=== PATIENT | female | born 1945 | race African-American/Black ===

== ENCOUNTER → 2017-02-01 | Outpatient (CLI) | payer OTHER ==
--- NOTE | 2017-02-01 13:45 | KCIC ---
DATE: 02/01/2017 EXAM: MAMMO KASI SCREENING BILATERAL HISTORY: Routine screening COMPARISON: 10/10/2015 This study was interpreted with the benefit of Computerized Aided Detection (CAD). The breast parenchyma is heterogeneously dense, which could reduce sensitivity of mammography. Breast parenchyma level C. FINDINGS: 2-D and 3-D tomosynthesis imaging was performed in CC and MLO projections. No new or enlarging breast densities are seen. Minimal benign type calcification is present. No suspicious microcalcifications have developed. IMPRESSION: Stable mammograms without evidence of malignancy. BI-RADS CATEGORY: 2 BENIGN FINDING(S) RECOMMENDED FOLLOW-UP: 12M 12 MONTH FOLLOW-UP PQRS compliance statement: Patient information was entered into a reminder system with a target due date for the next mammogram. Mammography is a sensitive method for finding small breast cancers, but it does not detect them all and is not a substitute for careful clinical examination. A negative mammogram does not negate a clinically suspicious finding and should not result in delay in biopsying a clinically suspicious abnormality. "Our facility is accredited by the [employer] Mammography [employer]."
== END | disposition home or self-care (01) ==
LOC: KCIC MAMMO 09:56
PROVIDERS: ATTEND Family Medicine
DX: Z12.31 Encounter for screening mammogram for malignant neoplasm of breast (principal)
CPT/HCPCS: 77063; G0202; 77067

== ENCOUNTER → 2017-06-10 | Outpatient (CLI) | payer OTHER | END | disposition home or self-care (01) | LOC: KCIC DEXA 09:40 | DX: M85.88 Other specified disorders of bone density and structure, other site (principal); Z78.0 Asymptomatic menopausal state | CPT/HCPCS: 77080 ==

== ENCOUNTER → 2017-07-12 | Outpatient (CLI) | payer OTHER ==
[2017-07-12 10:03] LABS: ADD MAN DIFF? NO
[2017-07-12 10:08] LABS: BASO % 1 % (0-3); EOS # 0.1 x10^3/uL (0.0-0.7); EOS % 2 % (0-3); HEMATOCRIT 37.4 % (36.0-47.0); HEMOGLOBIN 12.5 g/dL (12.0-15.5); LYMPH # 1.6 x10^3/uL (1.0-4.8); LYMPH % 24 % (24-48); MEAN CORPUSCULAR HEMOGLOBIN 28 pg (25-35); MEAN CORPUSCULAR HGB CONC 33 g/dL (31-37); MEAN CORPUSCULAR VOLUME 84 fL (79-100); MONO # 0.9 x10^3/uL (0.0-1.1); MONO % 13 % (0-9); NEUT % 60 % (31-73); PLATELET COUNT 181 x10^3/uL (140-400); RED BLOOD COUNT 4.44 x10^6/uL (3.50-5.40); RED CELL DISTRIBUTION WIDTH 15.1 % (11.5-14.5); WHITE BLOOD COUNT 6.6 x10^3/uL (4.0-11.0)
[2017-07-12 10:30] LABS: ALBUMIN 3.5 g/dL (3.4-5.0); ALK PHOS 65 U/L (46-116); ALT (SGPT) 20 U/L (14-59); ANION GAP 7 (6-14); AST (SGOT) 16 U/L (15-37); BLOOD UREA NITROGEN 19 mg/dL (7-20); BUN/CREATININE RATIO 19 (6-20); CALCIUM 8.5 mg/dL (8.5-10.1); CARBON DIOXIDE 28 mmol/L (21-32); CHLORIDE 106 mmol/L (98-107); CHOLESTEROL 164 mg/dL (0-200); GFR 66.1; GLUCOSE 78 mg/dL (70-99); HDLC 69 mg/dL (40-60); LDLC 84 mg/dL (0-100); NON-HDL CHOLESTEROL 95 mg/dL (0-129); POTASSIUM 4.2 mmol/L (3.5-5.1); SODIUM 141 mmol/L (136-145); TOTAL BILIRUBIN 0.4 mg/dL (0.2-1.0); TRIGLYCERIDES 54 mg/dL (0-150); VLDLC 11 mg/dL (0-40)
[2017-07-12 10:31] LABS: CHOLESTEROL/HDL RATIO 2.4
[2017-07-12 10:37] LABS: THYROID STIM HORMONE (TSH) 1.202 uIU/mL (0.358-3.74)
[2017-07-12 10:37] LABS: FREE T4 0.89 ng/dL (0.76-1.46)
[2017-07-12 10:49] LABS: IRON,SERUM 70 ug/dL (50-170)
== END | disposition home or self-care (01) ==
LOC: LAB 09:47
DX: Z13.220 Encounter for screening for lipoid disorders (principal); G25.81 Restless legs syndrome; F51.04 Psychophysiologic insomnia; R79.89 Other specified abnormal findings of blood chemistry; Z79.899 Other long term (current) drug therapy
CPT/HCPCS: 36415; 80053; 80061; 83540; 84439; 84443; 85025

== ENCOUNTER → 2018-04-03 | Outpatient (CLI) | payer OTHER ==
[2017-04-19 15:00] VITALS: BP 133/75
[~2018-04-03] MED LIST: GLUC100018 PO; HYDR-3164 PO; ROPI1TAB PO; TEMA30CA PO
--- NOTE | 2018-04-03 17:16 | KCIC ---
Bilateral digital screening mammograms with 3-D tomosynthesis: Reason for examination: Routine screening. Comparison is made to previous studies dated 02/01/2017 and 10/10/2015. Bilateral mammograms in CC and oblique projections were obtained with 2-D imaging and 3-D tomosynthesis imaging on a Siemens Inspiration unit and reviewed on the workstation. Interpretation was made with the benefit of CAD. The skin and nipples show no abnormalities. No abnormal axillary lymph nodes are seen. The breast parenchyma shows scattered fatty and fibroglandular density. (Breast density: Category B.) There continues to be some subtle nodularity centrally in the left breast on CC view which is unchanged. There are no new dominant masses, suspicious calcifications or architectural distortion. Impression: No evidence of malignancy. Recommend routine screening. BI-RAD Category 2: Benign. "Our facility is accredited by the [employer] Mammography Program." This patient's information has been entered into a reminder system for the patient to be notified with the results of her examination and a target date for the next mammogram. Electronically signed by: Mary Baird MD (04/03/2018 5:12 PM) [facility]
== END | disposition home or self-care (01) ==
LOC: KCIC MAMMO 15:35
PROVIDERS: ATTEND Family Medicine
DX: Z12.31 Encounter for screening mammogram for malignant neoplasm of breast (principal)
CPT/HCPCS: 77063; 77067

== ENCOUNTER → 2018-08-11 | Outpatient (CLI) | payer OTHER ==
[2017-04-19 15:00] VITALS: BP 133/75
--- NOTE | 2018-08-11 13:09 | KCIC ---
EXAM: HIP LEFT 2 VIEW. HISTORY: Left hip pain.. COMPARISON: None. FINDINGS: No fractures are identified. The joint spaces and alignment of the left hip are maintained. A calcification in the left hemipelvis measures 6.1 cm and most likely reflects a degenerated uterine fibroid. There is moderate to severe degenerative disc disease from L4 through S1. IMPRESSION: 1. No fracture or significant degenerative change at the left hip. Electronically signed by: Halley Garcia MD (08/11/2018 1:06 PM) [facility]
== END | disposition home or self-care (01) ==
LOC: KCIC 08:23
PROVIDERS: ATTEND Family Medicine
DX: M25.552 Pain in left hip (principal); M51.37 Other intervertebral disc degeneration, lumbosacral region
CPT/HCPCS: 73502

== ENCOUNTER 2019-03-15 21:04 | Inpatient (IN) | payer MEDICARE, OTHER ==
[~2019-03-15] VITALS: Ht 170.2 cm; Wt 66.7 kg
[2019-03-15] MEDS ORDERED: IV NORMAL SALINE 1000ML BAG 1,000 ML IV SCH (21:30)
--- NOTE | 2019-03-15 21:38 | PHYS DOC ---
Adult General Chief Complaint Chief Complaint: SHORTNESS OF BREATH HPI HPI 74-year-old female underlying history of hypertension, GERD patient's to the emergency department with complaints of shortness of breath. Patient states she had finished water aerobics she had a dizzy spell as well as shortness of breath subsided with rest however she got obtained which her car with increasing shortness of breath and a burning sensation in her chest. She denies any nausea, vomiting, syncopal episodes. He does have a history of recent travel with the cruise however that was in January. She denies any lower extremity edema or pain. She denies any chest pain. Rest makes her symptoms better, exertion made her symptoms worse. Review of Systems Review of Systems Constitutional: Denies fever or chills [] Respiratory: + SOB Cardiovascular: No additional information not addressed in HPI [] GI: Denies abdominal pain, nausea, vomiting, bloody stools or diarrhea [] : Denies dysuria or hematuria [] Musculoskeletal: Denies back pain or joint pain [] Integument: Denies rash or skin lesions [] Neurologic: Denies headache, focal weakness or sensory changes [] All other systems were reviewed and found to be within normal limits, except as documented in this note. Current Medications Current Medications Current Medications Medications (Trade) Dose Ordered Sig/Tosin Start Time Stop Time Status Last Admin Dose Admin Furosemide (Lasix) 40 mg 1X ONCE 03/15/19 22:15 03/15/19 22:16 DC 03/15/19 22:47 40 MG Info (CONTRAST GIVEN -- Rx MONITORING) 1 each PRN DAILY PRN 03/15/19 22:30 03/17/19 22:29 Iohexol (Omnipaque 350 Mg/ml) 90 ml 1X ONCE 03/15/19 22:15 03/15/19 22:16 DC 03/15/19 22:18 90 ML Sodium Chloride 1,000 ml @ 1,000 mls/hr Q1H 03/15/19 21:30 03/15/19 22:29 DC 03/15/19 21:49 1,000 MLS/HR Allergies Allergies Allergies Coded Allergies Type Severity Reaction Last Updated Verified No Known Drug Allergies 04/19/17 No Physical Exam Physical Exam Constitutional: Well developed, well nourished, no acute distress, non-toxic appearance. [] HENT: Normocephalic, atraumatic, bilateral external ears normal, oropharynx moist, no oral exudates, nose normal. [] Eyes: PERRLA, EOMI, conjunctiva normal, no discharge. [] Cardiovascular:Heart rate regular rhythm, no murmur [] Lungs & Thorax: Bilateral breath sounds clear to auscultation [] Abdomen: Bowel sounds normal, soft, no tenderness, no masses, no pulsatile masses. [] Skin: Warm, dry, no erythema, no rash. [] Back: No tenderness, no CVA tenderness. [] Extremities: No tenderness, no edema. [] Neurologic: Alert and oriented X 3, no focal deficits noted. [] Psychologic: Affect normal, judgement normal, mood normal. [] Current Patient Data Lab Values Laboratory Tests Test 03/15/19 21:15 White Blood Count 6.9 x10^3/uL (4.0-11.0) Red Blood Count 4.77 x10^6/uL (3.50-5.40) Hemoglobin 13.4 g/dL (12.0-15.5) Hematocrit 40.6 % (36.0-47.0) Mean Corpuscular Volume 85 fL (79-100) Mean Corpuscular Hemoglobin 28 pg (25-35) Mean Corpuscular Hemoglobin Concent 33 g/dL (31-37) Red Cell Distribution Width 15.1 % (11.5-14.5) H Platelet Count 166 x10^3/uL (140-400) Neutrophils (%) (Auto) 62 % (31-73) Lymphocytes (%) (Auto) 28 % (24-48) Monocytes (%) (Auto) 8 % (0-9) Eosinophils (%) (Auto) 1 % (0-3) Basophils (%) (Auto) 1 % (0-3) Neutrophils # (Auto) 4.3 x10^3/uL (1.8-7.7) Lymphocytes # (Auto) 1.9 x10^3/uL (1.0-4.8) Monocytes # (Auto) 0.5 x10^3/uL (0.0-1.1) Eosinophils # (Auto) 0.1 x10^3/uL (0.0-0.7) Basophils # (Auto) 0.1 x10^3/uL (0.0-0.2) D-Dimer (Merly) 1.18 ug/mlFEU (0.00-0.50) H Sodium Level 140 mmol/L (136-145) Potassium Level 3.8 mmol/L (3.5-5.1) Chloride Level 105 mmol/L (98-107) Carbon Dioxide Level 23 mmol/L (21-32) Anion Gap 12 (6-14) Blood Urea Nitrogen 25 mg/dL (7-20) H Creatinine 1.2 mg/dL (0.6-1.0) H Estimated GFR (Cockcroft-Gault) 53.3 BUN/Creatinine Ratio 21 (6-20) H Glucose Level 153 mg/dL (70-99) H Calcium Level 8.8 mg/dL (8.5-10.1) Total Bilirubin 0.4 mg/dL (0.2-1.0) Aspartate Amino Transferase (AST) 38 U/L (15-37) H Alanine Aminotransferase (ALT) 46 U/L (14-59) Alkaline Phosphatase 76 U/L (46-116) Troponin I Quantitative 0.021 ng/mL (0.000-0.055) XM-Vsr-Z-Type Natriuretic Peptide 3044 pg/mL (0-124) H Total Protein 7.1 g/dL (6.4-8.2) Albumin 4.1 g/dL (3.4-5.0) Albumin/Globulin Ratio 1.4 (1.0-1.7) Laboratory Tests 03/15/19 21:15 Laboratory Tests 03/15/19 21:15 EKG EKG EKG reviewed, interpretation time 26/03/09, no STEMI, left bundle branch block, tachycardia, left axis deviation[] Radiology/Procedures Radiology/Procedures [facility] [address] [place], [place] [id number] IMAGING REPORT Signed PATIENT: NIKKIE NGUYEN LACCOUNT: [id number] : 1945 LOCATION: ER AGE: 74 SEX: F EXAM STATUS: REG ER ORD. PHYSICIAN: RASHAWN COLLINS MD REASON: near syncope, + ddimer, SOB PROCEDURE: CT ANGIOGRAPHY CHEST Examination: CT angiogram chest HISTORY: History of syncope, elevated d-dimer, shortness of breath COMPARISON: None available TECHNIQUE: Axial CT angiography images of chest were performed with IV contrast. Coronal and sagittal 3-D MIP reformats are performed. Exposure: One or more of the following individualized dose reduction techniques were utilized for this examination: 1. Automated exposure control 2. Adjustment of the mA and/or kV according to patient size 3. Use of iterative reconstruction technique FINDINGS: The central airways are patent. Moderate cardiomegaly. The caliber of the aorta grossly appears unremarkable. There is no evidence of filling defect identified in the main pulmonary arterial trunk and right and left main pulmonary arteries and the visualized lobar, segmental branches of the pulmonary arteries. There is a 8 mm nodule identified in the right middle lobe of the lung. Patchy groundglass airspace opacities identified in the bilateral lungs likely small airway disease or atelectasis or edema. There is reflux of contrast into the hepatic veins. Mild prominent soft tissue identified about the bronchial branches in the bilateral lower lobes could be bronchitis. The liver, spleen grossly appears unremarkable. Moderate degenerative changes thoracic spine. IMPRESSION: 1. No evidence of pulmonary embolism. 2. Diffuse groundglass airspace opacities identified in the bilateral lungs likely infiltrates or congestive changes. Mild prominent soft tissue identified about the bronchial branches in the bilateral lower lobes could be bronchitis. 3. 8 mm nodule identified in the right middle lobe of the lung. Follow-up per Fleischner Society guidelines with a follow-up CT in 3-6 months. Electronically signed by: Pardeep Zarate MD (03/15/2019 10:37 PM) [facility] DICTATED and SIGNED BY: PARDEEP ZARATE MD DATE: 03/15/192236 [] Course & Med Decision Making Course & Med Decision Making Pertinent Labs and Imaging studies reviewed. (See chart for details) []74-year-old female underlying history of hypertension, GERD patient's to the emergency department with complaints of shortness of breath. Patient states she had finished water aerobics she had a dizzy spell as well as shortness of breath subsided with rest however she got obtained which her car with increasing shortness of breath and a burning sensation in her chest. She denies any nausea, vomiting, syncopal episodes. He does have a history of recent travel with the cruise however that was in January. She denies any lower extremity edema or pain. She denies any chest pain. Rest makes her symptoms better, exertion made her symptoms worse Labs and imaging reviewed with patient Elevated dddimer, CTA without evidence of pulmonary embolism however she does have bilateral groundglass concern for congestion, her BNP is 3044. Lasix 40 mg IV 1 Discussed findings with patient and family at bedside Plan admit with further cardiology consultation Dragon Disclaimer Dragon Disclaimer This electronic medical record was generated, in whole or in part, using a voice recognition dictation system. Departure Departure Impression: Primary Impression: Pulmonary edema Additional Impression: Hypertension Disposition: 09 ADMITTED INPATIENT Admitting Physician: FE Condition: IMPROVED Referrals: ROSHNI ROBERTSON MD (PCP) Problem Qualifiers Primary Impression: Pulmonary edema Chronicity: acute Qualified Codes: J81.0 - Acute pulmonary edema Additional Impression: Hypertension Hypertension type: essential hypertension Qualified Codes: I10 - Essential (primary) hypertension RASHAWN COLLINS MD Mar 15, 2019 21:38
[2019-03-15 21:39] LABS: BASO # 0.1 x10^3/uL (0.0-0.2); BASO % 1 % (0-3); EOS # 0.1 x10^3/uL (0.0-0.7); EOS % 1 % (0-3); HEMATOCRIT 40.6 % (36.0-47.0); HEMOGLOBIN 13.4 g/dL (12.0-15.5); LYMPH # 1.9 x10^3/uL (1.0-4.8); LYMPH % 28 % (24-48); MEAN CORPUSCULAR HEMOGLOBIN 28 pg (25-35); MEAN CORPUSCULAR HGB CONC 33 g/dL (31-37); MEAN CORPUSCULAR VOLUME 85 fL (79-100); MONO # 0.5 x10^3/uL (0.0-1.1); MONO % 8 % (0-9); NEUT # 4.3 x10^3/uL (1.8-7.7); NEUT % 62 % (31-73); PLATELET COUNT 166 x10^3/uL (140-400); RED BLOOD COUNT 4.77 x10^6/uL (3.50-5.40); RED CELL DISTRIBUTION WIDTH 15.1 % (11.5-14.5); WHITE BLOOD COUNT 6.9 x10^3/uL (4.0-11.0)
[2019-03-15 21:49] LABS: CALCIUM 8.8 mg/dL (8.5-10.1); CREATININE 1.2 mg/dL (0.6-1.0); GFR 53.3; POTASSIUM 3.8 mmol/L (3.5-5.1)
[2019-03-15 21:59] LABS: ALBUMIN 4.1 g/dL (3.4-5.0); ALBUMIN/GLOBULIN RATIO 1.4 (1.0-1.7); TOTAL BILIRUBIN 0.4 mg/dL (0.2-1.0); TOTAL PROTEIN 7.1 g/dL (6.4-8.2)
--- NOTE | 2019-03-15 22:02 | RAD ---
AP chest. HISTORY: Short of breath AP view was taken of the chest. Heart is upper normal in size. There is no effusion. There are hazy bilateral infiltrates mainly in the lung bases. There is no prior study for comparison. IMPRESSION: 1. Bibasilar infiltrates. Electronically signed by: Gomez Harden MD (03/15/2019 9:59 PM) [facility]
[2019-03-15] MEDS ORDERED: FUROSEMIDE 40 MG/4 ML VIAL. IVP ONE (22:15)
[2019-03-15] MEDS ORDERED: IOHEXOL 350 MG/ML 100 ML VIAL. IV ONE (22:15)
[2019-03-15] MEDS ORDERED: CONTRAST GIVEN. MC PRN (22:30)
--- NOTE | 2019-03-15 22:41 | RAD ---
Examination: CT angiogram chest HISTORY: History of syncope, elevated d-dimer, shortness of breath COMPARISON: None available TECHNIQUE: Axial CT angiography images of chest were performed with IV contrast. Coronal and sagittal 3-D MIP reformats are performed. Exposure: One or more of the following individualized dose reduction techniques were utilized for this examination: 1. Automated exposure control 2. Adjustment of the mA and/or kV according to patient size 3. Use of iterative reconstruction technique FINDINGS: The central airways are patent. Moderate cardiomegaly. The caliber of the aorta grossly appears unremarkable. There is no evidence of filling defect identified in the main pulmonary arterial trunk and right and left main pulmonary arteries and the visualized lobar, segmental branches of the pulmonary arteries. There is a 8 mm nodule identified in the right middle lobe of the lung. Patchy groundglass airspace opacities identified in the bilateral lungs likely small airway disease or atelectasis or edema. There is reflux of contrast into the hepatic veins. Mild prominent soft tissue identified about the bronchial branches in the bilateral lower lobes could be bronchitis. The liver, spleen grossly appears unremarkable. Moderate degenerative changes thoracic spine. IMPRESSION: 1. No evidence of pulmonary embolism. 2. Diffuse groundglass airspace opacities identified in the bilateral lungs likely infiltrates or congestive changes. Mild prominent soft tissue identified about the bronchial branches in the bilateral lower lobes could be bronchitis. 3. 8 mm nodule identified in the right middle lobe of the lung. Follow-up per Fleischner Society guidelines with a follow-up CT in 3-6 months. Electronically signed by: Pardeep Zarate MD (03/15/2019 10:37 PM) [facility]
[2019-03-15 23:40] VITALS: BP 133/90
[2019-03-16] VITALS (13 sets, daily range): BP systolic 72–111; BP diastolic 48–72
[2019-03-16] MEDS: ACETAMINOPHEN 325 MG TABLET. PO PRN ×4 (00:28→20:07)
--- NOTE | 2019-03-16 06:38 | EKG ---
[facility] [address] [place] [id number] Test Date: 2019-03-15 Test Time: 21:10:25 Pat Name: NIKKIE NGUYEN Department: Room: Gender: F Length Control Tester: : 1945 Requested By: RASHAWN COLLINS Order Number: [id number] Reading MD: Measurements Intervals [place] Rate: 118 P: -37 HI: 126 QRS: 23 QRSD: 124 T: 81 QT: 350 QTc: 492 Interpretive Statements SINUS TACHYCARDIA LEFT ATRIAL ABNORMALITY LOW LIMB LEAD VOLTAGE LEFT BUNDLE BRANCH BLOCK ABNORMAL ECG No previous ECG available for comparison
--- NOTE | 2019-03-16 09:38 | PDOC1 ---
History and Physical Date of Admission Date of Admission DATE: 03/16/19 TIME: 09:37 Identification/Chief Complaint Chief Complaint seen in ER WITH SOA, PULM EDEMA 74-year-old female underlying history of hypertension, GERD patient's to the emergency department with complaints of shortness of breath. 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 Past Medical History Past Medical History hypertension, GERD Past Medical History Past Medical History restless leg, Cardiovascular: No pertinent hx Pulmonary: No pertinent hx GI: No pertinent hx Heme/Onc: No pertinent hx Psych: No pertinent hx Rheumatologic: No pertinent hx Infectious disease: No pertinent hx Family History Family History: No Significant Social History Smoke: No ALCOHOL: none Cardiovascular: No pertinent hx Pulmonary: No pertinent hx GI: No pertinent hx Heme/Onc: No pertinent hx Psych: No pertinent hx Rheumatologic: No pertinent hx Infectious disease: No pertinent hx Past Surgical History Past Surgical History : 1945 LOC: SURG AGE: 72 SEX: F STATUS: PRE [facility] [place] LOCATION: SURG DATE OF SURGERY: 04/19/2017 PREOPERATIVE DIAGNOSIS: Proximal phalanx fracture with displacement of the right hallux. POSTOPERATIVE DIAGNOSIS: Proximal phalanx fracture with displacement of the right hallux. PROCEDURE: Open reduction and internal fixation with K-wire of the hallux fracture, right foot. SURGEON: Melissa Venegas DPM [employer]: Dr. Vince Jc. ANESTHESIA: LMA with local. HEMOSTASIS: Right ankle tourniquet at 250 mmHg. Family History Family History: No Significant, Hypertension Social History Smoke: Quit (QUIT 1987) ALCOHOL: social (3 GLASSES OF WINE A WEEK ) Drugs: None Current Problem List Problem List Problems Medical Problems: (1) Hypertension Status: Acute (2) Pulmonary edema Status: Acute Current Medications Current Medications Current Medications Sodium Chloride 1,000 ml @ 1,000 mls/hr Q1H IV Last administered on 03/15/19at 21:49; Start 03/15/19 at 21:30; Stop 03/15/19 at 22:29; Status DC Furosemide (Lasix) 40 mg 1X ONCE IVP Last administered on 03/15/19at 22:47; Sta rt 03/15/19 at 22:15; Stop 03/15/19 at 22:16; Status DC Iohexol (Omnipaque 350 Mg/ml) 90 ml 1X ONCE IV Last administered on 03/15/19at 22:18; Start 03/15/19 at 22:15; Stop 03/15/19 at 22:16; Status DC Info (CONTRAST GIVEN -- Rx MONITORING) 1 each PRN DAILY PRN MC SEE COMMENTS; Start 03/15/19 at 22:30; Stop 03/17/19 at 22:29 Acetaminophen (Tylenol) 650 mg PRN Q6HRS PRN PO PAIN Last administered on 03/16/19at 06:14; Start 03/16/19 at 00:30 Active Scripts Active Reported [place] 5-325 Tablet (Acetaminophen/Hydrocodone Bitart) 1 Each Tablet 1-2 Tab PO Q4-6HRS [place] 5-325 Tablet (Acetaminophen/Hydrocodone Bitart) 1 Each Tablet 1-2 Tab PO Q4-6HRS Glucosamine (Glucosamine Sulfate 2KCL) 1,000 Mg Tablet 0 PO Requip (Ropinirole Hcl) 1 Mg Tablet 2 Tab PO QHS Temazepam 30 Mg Capsule 1 Cap PO QHS Allergies Allergies: Coded Allergies: No Known Drug Allergies (Unverified , 04/19/17) ROS Review of System Review of Systems Review of Systems Constitutional: Denies fever or chills [] Respiratory: + SOB Cardiovascular: No additional information not addressed in HPI [] GI: Denies abdominal pain, nausea, vomiting, bloody stools or diarrhea [] : Denies dysuria or hematuria [] Musculoskeletal: Denies back pain or joint pain [] Integument: Denies rash or skin lesions [] Neurologic: Denies headache, focal weakness or sensory changes [] 14 pt systems were reviewed and found to be within normal limits, except as documented ALLERGY AND IMMUNOLOGY: No: Hives, Insect Bite Sensitivity, Itchy/Watery Eyes, Nasal Congestion, Post Nasal Drip, Seasonal Allergies, Other Respiratory: YES: Shortness of breath, SOB with excertion Neurological: No Behavorial Changes, No Bowel/Bladder ControlChng, No Confusion, No Dizziness, No Gait Disturbance, No Headaches, No Impaired Coord/balance, No Memory Loss, No Numbness/Tingling, No Seizures, No Speech Problems, No Tremors, No Visual Changes, No Weakness, No Other Physical Exam Physical Exam Physical Exam Physical Exam Constitutional: Well developed, well nourished, no acute distress, non-toxic appearance. [] HENT: Normocephalic, atraumatic, bilateral external ears normal, oropharynx moist, no oral exudates, nose normal. [] Eyes: PERRLA, EOMI, conjunctiva normal, no discharge. [] Cardiovascular:Heart rate regular rhythm, no murmur POS S4 GALLOP [] Lungs & Thorax: Bilateral breath sounds clear to auscultation [] Abdomen: Bowel sounds normal, soft, no tenderness, no masses, no pulsatile masses. [] Skin: Warm, dry, no erythema, no rash. [] Back: No tenderness, no CVA tenderness. [] Extremities: No tenderness, no edema. [] Neurologic: Alert and oriented X 3, no focal deficits noted. [] Psychologic: Affect normal, judgment normal, mood normal. [] General: Alert, Oriented X3, Cooperative, No acute distress HEENT: Atraumatic, EOMI, Mucous membr. moist/pink Heart: RRR, other (POS S4 GALLOP) Breasts: Not examined Rectal Exam: not examined Extremities: No cyanosis, Other (1 PLUS ANKLE EDEMA) Neuro: Normal speech, Cranial nerves 3-12 NL Psych/Mental Status: Mental status NL, Mood NL Vitals Vitals Vital Signs Date Time Temp Pulse Resp B/P (MAP) Pulse Ox O2 Delivery O2 Flow Rate FiO2 03/16/19 07:00 98.5 79 18 111/63 (79) 99 Nasal Cannula 2.0 98.5 Labs Labs Laboratory Tests Test 03/15/19 21:15 White Blood Count 6.9 x10^3/uL (4.0-11.0) Red Blood Count 4.77 x10^6/uL (3.50-5.40) Hemoglobin 13.4 g/dL (12.0-15.5) Hematocrit 40.6 % (36.0-47.0) Mean Corpuscular Volume 85 fL (79-100) Mean Corpuscular Hemoglobin 28 pg (25-35) Mean Corpuscular Hemoglobin Concent 33 g/dL (31-37) Red Cell Distribution Width 15.1 % (11.5-14.5) Platelet Count 166 x10^3/uL (140-400) Neutrophils (%) (Auto) 62 % (31-73) Lymphocytes (%) (Auto) 28 % (24-48) Monocytes (%) (Auto) 8 % (0-9) Eosinophils (%) (Auto) 1 % (0-3) Basophils (%) (Auto) 1 % (0-3) Neutrophils # (Auto) 4.3 x10^3/uL (1.8-7.7) Lymphocytes # (Auto) 1.9 x10^3/uL (1.0-4.8) Monocytes # (Auto) 0.5 x10^3/uL (0.0-1.1) Eosinophils # (Auto) 0.1 x10^3/uL (0.0-0.7) Basophils # (Auto) 0.1 x10^3/uL (0.0-0.2) D-Dimer (Merly) 1.18 ug/mlFEU (0.00-0.50) Sodium Level 140 mmol/L (136-145) Potassium Level 3.8 mmol/L (3.5-5.1) Chloride Level 105 mmol/L (98-107) Carbon Dioxide Level 23 mmol/L (21-32) Anion Gap 12 (6-14) Blood Urea Nitrogen 25 mg/dL (7-20) Creatinine 1.2 mg/dL (0.6-1.0) Estimated GFR (Cockcroft-Gault) 53.3 BUN/Creatinine Ratio 21 (6-20) Glucose Level 153 mg/dL (70-99) Calcium Level 8.8 mg/dL (8.5-10.1) Total Bilirubin 0.4 mg/dL (0.2-1.0) Aspartate Amino Transf (AST/SGOT) 38 U/L (15-37) Alanine Aminotransferase (ALT/SGPT) 46 U/L (14-59) Alkaline Phosphatase 76 U/L (46-116) Troponin I Quantitative 0.021 ng/mL (0.000-0.055) IY-Gnr-D-Type Natriuretic Peptide 3044 pg/mL (0-124) Total Protein 7.1 g/dL (6.4-8.2) Albumin 4.1 g/dL (3.4-5.0) Albumin/Globulin Ratio 1.4 (1.0-1.7) Laboratory Tests Test 03/15/19 21:15 White Blood Count 6.9 x10^3/uL (4.0-11.0) Red Blood Count 4.77 x10^6/uL (3.50-5.40) Hemoglobin 13.4 g/dL (12.0-15.5) Hematocrit 40.6 % (36.0-47.0) Mean Corpuscular Volume 85 fL (79-100) Mean Corpuscular Hemoglobin 28 pg (25-35) Mean Corpuscular Hemoglobin Concent 33 g/dL (31-37) Red Cell Distribution Width 15.1 % (11.5-14.5) Platelet Count 166 x10^3/uL (140-400) Neutrophils (%) (Auto) 62 % (31-73) Lymphocytes (%) (Auto) 28 % (24-48) Monocytes (%) (Auto) 8 % (0-9) Eosinophils (%) (Auto) 1 % (0-3) Basophils (%) (Auto) 1 % (0-3) Neutrophils # (Auto) 4.3 x10^3/uL (1.8-7.7) Lymphocytes # (Auto) 1.9 x10^3/uL (1.0-4.8) Monocytes # (Auto) 0.5 x10^3/uL (0.0-1.1) Eosinophils # (Auto) 0.1 x10^3/uL (0.0-0.7) Basophils # (Auto) 0.1 x10^3/uL (0.0-0.2) D-Dimer (Merly) 1.18 ug/mlFEU (0.00-0.50) Sodium Level 140 mmol/L (136-145) Potassium Level 3.8 mmol/L (3.5-5.1) Chloride Level 105 mmol/L (98-107) Carbon Dioxide Level 23 mmol/L (21-32) Anion Gap 12 (6-14) Blood Urea Nitrogen 25 mg/dL (7-20) Creatinine 1.2 mg/dL (0.6-1.0) Estimated GFR (Cockcroft-Gault) 53.3 BUN/Creatinine Ratio 21 (6-20) Glucose Level 153 mg/dL (70-99) Calcium Level 8.8 mg/dL (8.5-10.1) Total Bilirubin 0.4 mg/dL (0.2-1.0) Aspartate Amino Transf (AST/SGOT) 38 U/L (15-37) Alanine Aminotransferase (ALT/SGPT) 46 U/L (14-59) Alkaline Phosphatase 76 U/L (46-116) Troponin I Quantitative 0.021 ng/mL (0.000-0.055) EC-Yez-Q-Type Natriuretic Peptide 3044 pg/mL (0-124) Total Protein 7.1 g/dL (6.4-8.2) Albumin 4.1 g/dL (3.4-5.0) Albumin/Globulin Ratio 1.4 (1.0-1.7) Images Images Examination: CT angiogram chest HISTORY: History of syncope, elevated d-dimer, shortness of breath COMPARISON: None available TECHNIQUE: Axial CT angiography images of chest were performed with IV contrast. Coronal and sagittal 3-D MIP reformats are performed. Exposure: One or more of the following individualized dose reduction techniques were utilized for this examination: 1. Automated exposure control 2. Adjustment of the mA and/or kV according to patient size 3. Use of iterative reconstruction technique FINDINGS: The central airways are patent. Moderate cardiomegaly. The caliber of the aorta grossly appears unremarkable. There is no evidence of filling defect identified in the main pulmonary arterial trunk and right and left main pulmonary arteries and the visualized lobar, segmental branches of the pulmonary arteries. There is a 8 mm nodule identified in the right middle lobe of the lung. Patchy groundglass airspace opacities identified in the bilateral lungs likely small airway disease or atelectasis or edema. There is reflux of contrast into the hepatic veins. Mild prominent soft tissue identified about the bronchial branches in the bilateral lower lobes could be bronchitis. The liver, spleen grossly appears unremarkable. Moderate degenerative changes thoracic spine. IMPRESSION: 1. No evidence of pulmonary embolism. 2. Diffuse groundglass airspace opacities identified in the bilateral lungs likely infiltrates or congestive changes. Mild prominent soft tissue identified about the bronchial branches in the bilateral lower lobes could be bronchitis. 3. 8 mm nodule identified in the right middle lobe of the lung. Follow-up per Fleischner Society guidelines with a follow-up CT in 3-6 months. Electronically signed by: Pardeep Zarate MD (03/15/2019 10:37 PM) [facility] [place] DICTATED and SIGNED BY: PARDEEP ZARATE MD VTE Prophylaxis Ordered VTE Prophylaxis Devices: No VTE Pharmacological Prophylaxi: Yes Assessment/Plan Assessment/Plan IMPRESSION: 1. No evidence of pulmonary embolism. 2. Diffuse groundglass airspace opacities identified in the bilateral lungs likely infiltrates or congestive changes. 3. soft tissue CHANGES identified about the bronchial branches in the bilateral lower lobes could be bronchitis. 4. Acute pulm edema 5. 8 mm nodule identified in the right middle lobe of the lung. Follow-up per Fleischner Society guidelines with a follow-up CT in 3-6 months. 6. elevated d-dimer 7. hx htn 8. ACUTE HYPOXIC RESP FAILURE 9. 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
[2019-03-16] MEDS ORDERED: LORazepam 0.5 MG TABLET PO PRN (14:00)
[2019-03-16] MEDS ORDERED: ACETAMINOPHEN 325 MG TABLET. PO PRN (14:00)
[2019-03-16] MEDS ORDERED: guaiFENesin ORAL 200 MG/10 ML LIQUID. PO PRN (14:00)
[2019-03-16] MEDS ORDERED: MAG HYDROX/ALUMINUM HYD/SIMETH 30 ML ORAL.SUSP PO PRN (14:00)
[2019-03-16] MEDS ORDERED: 0.9 % SODIUM CHLORIDE 10 ML DISP.SYRIN. IV PRN (14:00)
[2019-03-16] MEDS ORDERED: DOCUSATE SODIUM 100 MG CAPSULE. PO PRN (14:00)
[2019-03-16] MEDS ORDERED: cloNIDine HCL 0.1 MG TABLET PO PRN (14:00)
[2019-03-16] MEDS ORDERED: ONDANSETRON PF 4 MG/2 ML VIAL. IV PRN (14:00)
[2019-03-16] MEDS ORDERED: ALBUTEROL SULFATE 2.5 MG/3 ML NEBU. NEB PRN (14:00)
--- NOTE | 2019-03-16 14:06 | PDOC2 ---
WILLA DOE PROFESSIONAL ENGINEER 03/16/19 1406: CARDIAC CONSULT DATE OF CONSULT Date of Consult DATE: 03/16/19 TIME: 13:59 REASON FOR CONSULT Reason for Consult: Pulmonary edema REFERRING PHYSICIAN Referring Physician: Fullbright SOURCE Source: Chart review, Patient HISTORY OF PRESENT ILLNESS HISTORY OF PRESENT ILLNESS This is a pleasant 74 yo female admitted for complains of SOA. Reports that she noticed this after getting done with her water aerobics yesterday. She does water aerobics twise a week. No chest pain, palpitations and does tolerate her activities till yesterday. In the last few weeks she has not been having any nausea, indigestion, chest pain and no SOA. Reports no jaw or arm discomfort. No recent long distance travel and no falls or frequent dizziness. Last night he felt SOA more pronounce with exertion. No significant leg swelling. No prior hx of HLP, HTN, CAD. Has not been told of arrhythmias. abnormal EKG and no past cardiac workup. PAST MEDICAL HISTORY Cardiovascular: No pertinent hx Pulmonary: No pertinent hx CENTRAL NERVOUS SYSTEM: Other (RLS) GI: GERD Heme/Onc: No pertinent hx Hepatobiliary: No pertinent hx Psych: Other (insomnia) Musculoskeletal: Osteoarthritis Rheumatologic: No pertinent hx Infectious disease: No pertinent hx ENT: Other (cataract) Renal/: Urinary Incontinence Endocrine: No pertinent hx Dermatology: No pertinent hx PAST SURGICAL HISTORY Past Surgical History: Hernia Repair, Other (cystoscopy; right foot surgery) FAMILY HISTORY Family History sister has lupus SOCIAL HISTORY Smoke: Quit (25 pk yr quit in 1985) ALCOHOL: occassional Drugs: None Lives: Alone CURRENT MEDICATIONS CURRENT MEDICATIONS Current Medications Medications (Trade) Dose Ordered Sig/Tosin Route PRN Reason Start Time Stop Time Status Last Admin Dose Admin Sodium Chloride 1,000 ml @ 1,000 mls/hr Q1H IV 03/15/19 21:30 03/15/19 22:29 DC 03/15/19 21:49 Furosemide (Lasix) 40 mg 1X ONCE IVP 03/15/19 22:15 03/15/19 22:16 DC 03/15/19 22:47 Iohexol (Omnipaque 350 Mg/ml) 90 ml 1X ONCE IV 03/15/19 22:15 03/15/19 22:16 DC 03/15/19 22:18 Acetaminophen (Tylenol) 650 mg PRN Q6HRS PRN PO PAIN 03/16/19 00:30 03/16/19 13:15 ALLERGIES ALLERGIES: Coded Allergies: No Known Drug Allergies (Unverified , 04/19/17) ROS Review of System 14 point ROS evaluated with pertinent positives noted per HPI PHYSICAL EXAM General: Alert, Oriented X3, Cooperative, No acute distress HEENT: Atraumatic, Mucous membr. moist/pink, Other (JVD) Lungs: Other (basilar crackles) Heart: Regular rate (SR LBBB), Other (S3; 4/6 systolic murmur loudest to LLS border, apical heave with displaced PMI) Abdomen: Soft, No tenderness Extremities: No cyanosis, Other (1+ bilateral LE pitting edema) Skin: No breakdown, No significant lesion Neuro: Normal speech, Sensation intact Psych/Mental Status: Mental status NL, Mood NL MUSCULOSKELETAL: Osteoarthritic changes both hands VITALS/I&O VITALS/I&O: Vital Signs Date Time Temp Pulse Resp B/P (MAP) Pulse Ox O2 Delivery O2 Flow Rate FiO2 03/16/19 11:00 98.4 73 18 104/68 (80) 98 Nasal Cannula 2.0 98.4 I & O 03/15/19 03/15/19 03/16/19 15:00 23:00 07:00 Intake Total 500 ml Output Total 1600 ml Balance 500 ml -1600 ml LABS Lab: Laboratory Tests Test 03/15/19 21:15 White Blood Count 6.9 x10^3/uL (4.0-11.0) Red Blood Count 4.77 x10^6/uL (3.50-5.40) Hemoglobin 13.4 g/dL (12.0-15.5) Hematocrit 40.6 % (36.0-47.0) Mean Corpuscular Volume 85 fL (79-100) Mean Corpuscular Hemoglobin 28 pg (25-35) Mean Corpuscular Hemoglobin Concent 33 g/dL (31-37) Red Cell Distribution Width 15.1 % (11.5-14.5) H Platelet Count 166 x10^3/uL (140-400) Neutrophils (%) (Auto) 62 % (31-73) Lymphocytes (%) (Auto) 28 % (24-48) Monocytes (%) (Auto) 8 % (0-9) Eosinophils (%) (Auto) 1 % (0-3) Basophils (%) (Auto) 1 % (0-3) Neutrophils # (Auto) 4.3 x10^3/uL (1.8-7.7) Lymphocytes # (Auto) 1.9 x10^3/uL (1.0-4.8) Monocytes # (Auto) 0.5 x10^3/uL (0.0-1.1) Eosinophils # (Auto) 0.1 x10^3/uL (0.0-0.7) Basophils # (Auto) 0.1 x10^3/uL (0.0-0.2) D-Dimer (Merly) 1.18 ug/mlFEU (0.00-0.50) H Sodium Level 140 mmol/L (136-145) Potassium Level 3.8 mmol/L (3.5-5.1) Chloride Level 105 mmol/L (98-107) Carbon Dioxide Level 23 mmol/L (21-32) Anion Gap 12 (6-14) Blood Urea Nitrogen 25 mg/dL (7-20) H Creatinine 1.2 mg/dL (0.6-1.0) H Estimated GFR (Cockcroft-Gault) 53.3 BUN/Creatinine Ratio 21 (6-20) H Glucose Level 153 mg/dL (70-99) H Calcium Level 8.8 mg/dL (8.5-10.1) Total Bilirubin 0.4 mg/dL (0.2-1.0) Aspartate Amino Transferase (AST) 38 U/L (15-37) H Alanine Aminotransferase (ALT) 46 U/L (14-59) Alkaline Phosphatase 76 U/L (46-116) Troponin I Quantitative 0.021 ng/mL (0.000-0.055) SK-Cgm-X-Type Natriuretic Peptide 3044 pg/mL (0-124) H Total Protein 7.1 g/dL (6.4-8.2) Albumin 4.1 g/dL (3.4-5.0) Albumin/Globulin Ratio 1.4 (1.0-1.7) Laboratory Tests 03/15/19 21:15 Laboratory Tests 03/15/19 21:15 ASSESSMENT/PLAN ASSESSMENT/PLAN 1. Acute CHF with possible systolic dysfunction: ischemia likely etiology. 2. NSTEMI: New LBBB: no CP 3. JANE: prerenal 4. Suspect cardiomyopathy 5. Murmur Recommendations 1. Lasix therapy. 2. TTE, TSH, lipids, BMP and Mg. Trend troponin 3. ASA. Will start on BB pending BP trend post diuresis 4. No past EKG and no past cardiac w/u. [facility] today, risks and benefits discussed and agreeable to proceed. AIXA BUTLER MD 03/16/19 0916: CARDIAC CONSULT ASSESSMENT/PLAN ASSESSMENT/PLAN Pt. seen and examined. 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 74 y.o woman with NICM. Cath with nornal pressures and normal coronaries. Start GDMT as tolerated. She has low BP's, may not be able to start entresto. Will aim for low dose toprol and lisinopril. Consider for outpt SOCIAL MEDIA MARKETING SPECIALIST-D based on improvement etc. Thanks. WILLA DOE APRN Mar 16, 2019 14:06 AIXA BUTLER MD Mar 16, 2019 23:56
[2019-03-16] MEDS ORDERED: FUROSEMIDE 40 MG/4 ML VIAL. IVP ONE (14:30)
[2019-03-16 14:56] LABS: CREATININE 1.3 mg/dL (0.6-1.0); GFR 48.6; POTASSIUM 3.6 mmol/L (3.5-5.1)
--- NOTE | 2019-03-16 15:03 | NUR ---
SS following for discharge planning. SS reviewed pt chart. Pt is from home and is currently requiring oxygen. SS will continue to follow for discharge planning.
[2019-03-16] MEDS: ASPIRIN ENTERIC COATED 81 MG TABLET.DR. PO SCH (15:14)
[2019-03-16] MEDS ORDERED: POTASSIUM CHLORIDE 20 MEQ TABLET.ER. PO ONE (15:15)
[2019-03-16] MEDS ORDERED: IODIXANOL 320 MG/ML 100 ML VIAL. ONE (16:02)
[2019-03-16] MEDS ORDERED: LIDOCAINE 1% PF 2 ML VIAL. ONE (16:02)
[2019-03-16] MEDS ORDERED: NITROGLYCERIN 200 MCG/2 ML SYRINGE FOR CATH/VASC LAB. ONE (16:17)
[2019-03-16] MEDS ORDERED: VERAPAMIL 5 MG/2 ML VIAL. ONE (16:17)
[2019-03-16] MEDS ORDERED: fentaNYL PF VIAL 100 MCG/2 ML VIAL ONE (16:17)
[2019-03-16] MEDS ORDERED: MIDAZOLAM HCL/PF 2 MG/2 ML VIAL. ONE (16:17)
[2019-03-16] MEDS ORDERED: HEPARIN for IV BOLUS 10,000 UNIT/10 ML VIAL. ONE (16:17)
--- NOTE | 2019-03-16 16:19 | CARD ---
MR#: [id number] Date of Study: 03/16/2019 Ordering Physician: SHANNON BREWSTER, Referring Physician: SHANNON BREWSTER, Tech: Jenny Pat APPROVED REPORT EXAM: Two-dimensional and M-mode echocardiogram with Doppler and color Doppler. Other Information Quality : GoodHR: 72bpm INDICATION Dyspnea Congestive Heart Failure RISK FACTORS Hypertension 2D DIMENSIONS RVDd2.6 (2.9-3.5cm)Left Atrium(2D)4.0 (1.6-4.0cm) IVSd0.9 (0.7-1.1cm)Aortic Root(2D)2.9 (2.0-3.7cm) LVDd6.1 (3.9-5.9cm)LVOT Diameter2.1 (1.8-2.4cm) PWd1.2 (0.7-1.1cm)LVDs5.3 (2.5-4.0cm) FS (%) 12.5 %SV49.2 ml LVEF(%)26.4 (>50%) Aortic Valve AoV Peak Johnny.131.2cm/sAoV VTI27.5cm AO Peak GR.6.9mmHgLVOT VTI 11.98cm AO Mean GR.6mmHg Mitral Valve MV E Colaabkz27.1cm/sMV E Peak Gr.4mmHg MV DECEL [id number] A Hyreksyi59.5cm/s MV E Mean Gr.1mmHgE/A Ratio0.7 TDI Lateral E' P. V3.41cm/sMedial E' P. V4.76cm/s E/Lateral E'17.3E/Medial E'12.4 Tricuspid Valve TR P. Sdginnnz393xl/sRAP [id number] TR Peak Gr.46tqLjTTTC67cpWk Pulmonary Vein S1 Bmaalwng18.3cm/sS2 Vsqwohpw58.77cm/s D2 Gacfcgnv22.8cm/sPVa [id number] LEFT VENTRICLE The Left Ventricle is moderately dilated. There is borderline to mild concentric left ventricular hyp ertrophy. The left ventricular systolic function is severely impaired. The Ejection Fraction is 20-25 %. There is global hypokinesis of the left ventricle. There is hypokinesis of the setal wall. Transmi tral Doppler flow pattern is Grade I-abnormal relaxation pattern. RIGHT VENTRICLE The right ventricle is normal size. There is normal right ventricular wall thickness. The right ventr icular systolic function is normal. ATRIA The left atrium is mildly dilated. The right atrium size is normal. The interatrial septum is intact with no evidence for an atrial septal defect or patent foramen ovale as noted on 2-D or Doppler imagi ng. AORTIC VALVE The aortic valve is normal in structure and function. Doppler and Color Flow revealed no significant aortic regurgitation. There is no significant aortic valvular stenosis. MITRAL VALVE The mitral valve is normal in structure and function. A borderline mitral valve prolapse is present. There is no mitral valve stenosis. Doppler and Color-flow revealed trace to mild mitral regurgitation . TRICUSPID VALVE The tricuspid valve is normal in structure and function. Doppler and Color Flow revealed trace tricus pid regurgitation with an estimated PAP of 30 mmHg. There is no tricuspid valve stenosis. PULMONIC VALVE The pulmonic valve is not well visualized. Doppler and Color Flow revealed no pulmonic valvular regur gitation. GREAT VESSELS The aortic root is normal in size. The IVC is normal in size and collapses >50% with inspiration. PERICARDIAL EFFUSION There is no evidence of significant pericardial effusion. Critical Notification Physician Notified Critical Value: Yes <Conclusion> The left ventricular systolic function is severely impaired. The Ejection Fraction is 20-25%. Transmitral Doppler flow pattern is Grade I-abnormal relaxation pattern. Trace to mild mitral regurgitation. Trace tricuspid regurgitation with an estimated PAP of 30 mmHg. There is no evidence of significant pericardial effusion. Signed by : Rob Delcid, Electronically Approved : 03/16/2019 16:19:10
[2019-03-16] MEDS ORDERED: MIDAZOLAM HCL/PF 2 MG/2 ML VIAL. IV ONE (16:45)
[2019-03-16] MEDS ORDERED: HEPARIN for IV BOLUS 10,000 UNIT/10 ML VIAL. IART ONE (16:45)
[2019-03-16] MEDS ORDERED: VERAPAMIL 5 MG/2 ML VIAL. IART ONE (16:45)
[2019-03-16] MEDS ORDERED: LIDOCAINE 1% PF 2 ML VIAL. INJ ONE (16:45)
[2019-03-16] MEDS ORDERED: IOHEXOL 300 MG/ML 100ML VIAL. IART ONE (16:45)
[2019-03-16] MEDS ORDERED: NITROGLYCERIN 200 MCG/2 ML SYRINGE FOR CATH/VASC LAB. IART ONE (16:45)
[2019-03-16] MEDS ORDERED: fentaNYL PF VIAL 100 MCG/2 ML VIAL IV ONE (16:45)
[2019-03-16 18:04] LABS: BILIRUBIN,URINE NEGATIVE (NEG); CLARITY,URINE CLEAR; COLOR,URINE YELLOW; NITRITE,URINE NEGATIVE (NEG); PROTEIN,URINE NEGATIVE (NEG-TRACE); UROBILINOGEN,URINE 0.2 mg/dL (0.2 mg/dL)
[2019-03-16 18:14] LABS: BACTERIA,URINE 0 /HPF (0-FEW); RBC,URINE 0 /HPF (0-2); SQUAMOUS EPITHELIAL CELL,UR OCC /LPF; WBC,URINE RARE /HPF (0-4)
[2019-03-16] MEDS ORDERED: rOPINIRole 1 MG TABLET. PO SCH (21:00)
[2019-03-17 03:25] VITALS: BP 122/79
[2019-03-17 04:05] LABS: CALCIUM 8.5 mg/dL (8.5-10.1); GFR 65.8; POTASSIUM 4.2 mmol/L (3.5-5.1)
[2019-03-17 04:19] LABS: CHOLESTEROL/HDL RATIO 2.4
[2019-03-17 07:00] VITALS: BP 113/74
[2019-03-17] MEDS ORDERED: CARVEDILOL 3.125 MG TABLET. PO SCH (08:00)
[2019-03-17] MEDS: ASPIRIN ENTERIC COATED 81 MG TABLET.DR. PO SCH (08:40)
[2019-03-17] MEDS ORDERED: ENOXAPARIN 40 MG/0.4 ML SYRINGE. SQ SCH (09:00)
--- NOTE | 2019-03-17 10:03 | CARD ---
MR#: [id number] Date of Study: 03/16/2019 Ordering Physician: WILLA DOE, Referring Physician: WILLA DOE, Tech: Jackelyn Hathaway RT (R) APPROVED REPORT Technologist: Jackelyn Hathaway RT (R) Nurse: Belén Bear R.N. Procedure(s) performed: FLUORO TIME: 3.3 MIN DOSE: 244 Gycm2 Visi: 34ml Moderate Sedation Time: 20 Min LHC, Coronary angiography HISTORY : The patient is a 74 year-old female with a history of . INDICATION The indication(s) include : non-STEMI , dyspnea. [facility] Clinical Frailty Scale [facility] Clinical Frailty Scale: Moderately Frail Heart Failure Heart Failure: Yes If Yes, Newly Diagnosed: Yes If Yes, HF Type: Diastolic Systolic If Yes, NYHA Class: Class II PROCEDURE NARRATIVE INFORMED CONSENT: After explaining the risks and benefits of the procedure and alternatives, informed consent was obtained. The patient was brought electively to the cardiac catheterization lab. A timeout was performed confi rming the patient's name, date of , procedure, and site of procedure. All necessary personnel w ere wearing the appropriate protective equipment and radiation monitor devices. (See nursing notes for medications administered). ACCESS: The right wrist was sterilely prepped and draped in the usual fashion. The right wrist was infiltrat ed with 1 mL of 2% lidocaine for subcutaneous anesthesia. A 6 Divehi Terumo glide sheath was inserte d into the right radial artery without difficulty. CORONARY ANGIOGRAPHY: Right and left coronary angiography was performed using a 6Fr TIG 4.0 catheter. Left ventricular en d diastolic pressure was obtained with a pigtail catheter and pullback was performed after left ventr iculography. All catheter exchanges and advancements were performed over a guidewire. CLOSURE: At case completion the right radial sheath was removed and a Terumo radial band was applied with 13 m l of air. COMPLICATIONS: The patient tolerated the procedure well and there were no immediate complications. FINDINGS: HEMODYNAMICS: LVEDP 14 mm Hg No gradient on LV to aortic pullback. AO: 128/78 LEFT VENTRICULOGRAM:Deferred due to known EF of 25% by echo. CORONARY ANGIOGRAPHY: LM is a large caliber vessel with normal angiographic appearance. LAD is a large caliber vessel with normal angiographic appearance. D1 is a moderate caliber vessel with normal angiographic apeparance. LCx is a large caliber non-dominant vessel with normal angiographic appearance. OM1 is a moderate caliber vessel with normal angiographic appearance. RCA is a moderate caliber dominant vessel with normal angiographic appearance. RPDA is a moderate caliber vessel with normal angiographic appearance. Conclusion 1. Normal left sided filling pressures. 2. Normal angiographic appearance of the coronary arteries. Recommendations 1. Aggressive medical therapy Signed by : Edwin Finney, Electronically Approved : 03/17/2019 10:02:49
[2019-03-17 11:00] VITALS: BP 108/71
--- NOTE | 2019-03-17 11:05 | PDOC ---
PROGRESS NOTES History of Present Illness History of Present Illness DISCHARGE DX Assessment/Plan IMPRESSION: 1. No evidence of pulmonary embolism. 2. Diffuse groundglass airspace opacities identified in the bilateral lungs likely infiltrates or congestive changes. 3. soft tissue CHANGES identified about the bronchial branches in the bilateral lower lobes could be bronchitis. 4. Acute pulm edema 5. 8 mm nodule identified in the right middle lobe of the lung. Follow-up per Fleischner Society guidelines with a follow-up CT in 3-6 months. 6. elevated d-dimer 7. hx htn 8. ACUTE HYPOXIC RESP FAILURE 9. REMOTE TOBACCO ABUSE, STOPPED 1987 10. CARDIOMYOPATHY The left ventricular systolic function is severely impaired. The Ejection Fraction is 20-25%. Transmitral Doppler flow pattern is Grade I-abnormal relaxation pattern. 11. Normal angiographic appearance of the coronary arteries. 12. NSTEMI plan admit cvc consult cardiology echo iv lasix O2 SUPPORT PRN TSH Cardiac cath 03/16 PULM CONSULT 6 min walk LIFE VEST D/C PLANNING 27 MIN Vitals Vitals Vital Signs Date Time Temp Pulse Resp B/P (MAP) Pulse Ox O2 Delivery O2 Flow Rate FiO2 03/17/19 08:40 80 122/79 03/17/19 08:20 Room Air 03/17/19 07:00 98.3 21 98 2.0 98.3 Physical Exam General: Alert, Oriented X3, Cooperative, No acute distress Heart: Regular rate (SR LBBB), Other (S3; 4/6 systolic murmur loudest to LLS border, apical heave with displaced PMI) Lungs: Clear Abdomen: Normal bowel sounds, Soft, No tenderness Extremities: No clubbing, No cyanosis, Other (1+ bilateral LE pitting edema) Skin: No breakdown, No significant lesion Labs LABS PROCEDURE NARRATIVE INFORMED CONSENT: After explaining the risks and benefits of the procedure and alternatives, informed consent was obtained. The patient was brought electively to the cardiac catheterization lab. A timeout was performed confirming the patient's name, date of , procedure, and site of procedure. All necessary personnel were wearing the appropriate protective equipment and radiation monitor devices. (See nursing notes for med ications administered). ACCESS: The right wrist was sterilely prepped and draped in the usual fashion. The right wrist was infiltrated with 1 mL of 2% lidocaine for subcutaneous anesthesia. A 6 [place] Terumo glide sheath was inserted into the right radial artery without difficulty. CORONARY ANGIOGRAPHY: Right and left coronary angiography was performed using a 6Fr TIG 4.0 catheter. Left ventricular end diastolic pressure was obtained with a pigtail catheter and pullback was performed after left ventriculography. All catheter exchanges and advancements were performed over a guidewire. CLOSURE: At case completion the right radial sheath was removed and a Terumo radial band was applied with 13 ml of air. COMPLICATIONS: The patient tolerated the procedure well and there were no immediate complications. FINDINGS: HEMODYNAMICS: LVEDP 14 mm Hg No gradient on LV to aortic pullback. AO: 128/78 LEFT VENTRICULOGRAM:Deferred due to known EF of 25% by echo. CORONARY ANGIOGRAPHY: LM is a large caliber vessel with normal angiographic appearance. LAD is a large caliber vessel with normal angiographic appearance. D1 is a moderate caliber vessel with normal angiographic apeparance. LCx is a large caliber non-dominant vessel with normal angiographic appearance. OM1 is a moderate caliber vessel with normal angiographic appearance. RCA is a moderate caliber dominant vessel with normal angiographic appearance. RPDA is a moderate caliber vessel with normal angiographic appearance. Conclusion 1. Normal left sided filling pressures. 2. Normal angiographic appearance of the coronary arteries. Recommendations 1. Aggressive medical therapy Signed by : Aixa Butler, Electronically Approved : 03/17/2019 10:02:49 DICTATED and SIGNED BY: AIXA BUTLER MD DATE: 03/16/19 1647 LEFT VENTRICLE The Left Ventricle is moderately dilated. There is borderline to mild concentric left ventricular hypertrophy. The left ventricular systolic function is severely impaired. The Ejection Fraction is 20-25%. There is global hypokinesis of the left ventricle. There is hypokinesis of the setal wall. Transmitral Doppler flow pattern is Grade I-abnormal relaxation pattern. RIGHT VENTRICLE The right ventricle is normal size. There is normal right ventricular wall thickness. The right ventricular systolic function is normal. ATRIA The left atrium is mildly dilated. The right atrium size is normal. The interatrial septum is intact with no evidence for an atrial septal defect or patent foramen ovale as noted on 2-D or Doppler imaging. AORTIC VALVE The aortic valve is normal in structure and function. Doppler and Color Flow revealed no significant aortic regurgitation. There is no significant aortic valvular stenosis. MITRAL VALVE The mitral valve is normal in structure and function. A borderline mitral valve prolapse is present. There is no mitral valve stenosis. Doppler and Color-flow revealed trace to mild mitral regurgitation. TRICUSPID VALVE The tricuspid valve is normal in structure and function. Doppler and Color Flow revealed trace tricuspid regurgitation with an estimated PAP of 30 mmHg. There is no tricuspid valve stenosis. PULMONIC VALVE The pulmonic valve is not well visualized. Doppler and Color Flow revealed no pulmonic valvular regurgitation. GREAT VESSELS The aortic root is normal in size. The IVC is normal in size and collapses >50% with inspiration. PERICARDIAL EFFUSION There is no evidence of significant pericardial effusion. Critical Notification Physician Notified Critical Value: Yes <Conclusion> The left ventricular systolic function is severely impaired. The Ejection Fraction is 20-25%. Transmitral Doppler flow pattern is Grade I-abnormal relaxation pattern. Trace to mild mitral regurgitation. Trace tricuspid regurgitation with an estimated PAP of 30 mmHg. There is no evidence of significant pericardial effusion. Signed by : Rob Delcid, Electronically Approved : 03/16/2019 16:19:10 Laboratory Tests Test 03/16/19 14:25 03/16/19 17:45 03/17/19 03:30 Sodium Level 140 mmol/L (136-145) 143 mmol/L (136-145) Potassium Level 3.6 mmol/L (3.5-5.1) 4.2 mmol/L (3.5-5.1) Chloride Level 105 mmol/L (98-107) 107 mmol/L (98-107) Carbon Dioxide Level 28 mmol/L (21-32) 26 mmol/L (21-32) Anion Gap 7 (6-14) 10 (6-14) Blood Urea Nitrogen 18 mg/dL (7-20) 23 mg/dL (7-20) Creatinine 1.3 mg/dL (0.6-1.0) 1.0 mg/dL (0.6-1.0) Estimated GFR (Cockcroft-Gault) 48.6 65.8 Glucose Level 122 mg/dL (70-99) 103 mg/dL (70-99) Calcium Level 9.0 mg/dL (8.5-10.1) 8.5 mg/dL (8.5-10.1) Magnesium Level 2.1 mg/dL (1.8-2.4) Troponin I Quantitative 1.187 ng/mL (0.000-0.055) Thyroid Stimulating Hormone (TSH) 1.066 uIU/mL (0.358-3.74) Urine Collection Type Unknown Urine Color Yellow Urine Clarity Clear Urine pH 6.0 Urine Specific [place] 1.015 Urine Protein Negative mg/dL (NEG-TRACE) Urine Glucose (UA) Negative mg/dL (NEG) Urine Ketones (Stick) Negative mg/dL (NEG) Urine Blood Negative (NEG) Urine Nitrite Negative (NEG) Urine Bilirubin Negative (NEG) Urine Urobilinogen Dipstick 0.2 mg/dL (0.2 mg/dL) Urine Leukocyte Esterase Negative (NEG) Urine RBC 0 /HPF (0-2) Urine WBC Rare /HPF (0-4) Urine Squamous Epithelial Cells Occ /LPF Urine Bacteria 0 /HPF (0-FEW) Triglycerides Level 43 mg/dL (0-150) Cholesterol Level 183 mg/dL (0-200) LDL Cholesterol, Calculated 98 mg/dL (0-100) VLDL Cholesterol, Calculated 9 mg/dL (0-40) Non-HDL Cholesterol Calculated 107 mg/dL (0-129) HDL Cholesterol 76 mg/dL (40-60) Cholesterol/HDL Ratio 2.4 Assessment and Plan Assessmemt and Plan Problems Medical Problems: (1) Hypertension Status: Acute (2) Pulmonary edema Status: Acute Comment Review of Relevant I have reviewed the following items edward (where applicable) has been applied. Labs Laboratory Tests Test 03/15/19 21:15 03/16/19 14:25 03/16/19 17:45 03/17/19 03:30 White Blood Count 6.9 x10^3/uL (4.0-11.0) Red Blood Count 4.77 x10^6/uL (3.50-5.40) Hemoglobin 13.4 g/dL (12.0-15.5) Hematocrit 40.6 % (36.0-47.0) Mean Corpuscular Volume 85 fL (79-100) Mean Corpuscular Hemoglobin 28 pg (25-35) Mean Corpuscular Hemoglobin Concent 33 g/dL (31-37) Red Cell Distribution Width 15.1 % (11.5-14.5) Platelet Count 166 x10^3/uL (140-400) Neutrophils (%) (Auto) 62 % (31-73) Lymphocytes (%) (Auto) 28 % (24-48) Monocytes (%) (Auto) 8 % (0-9) Eosinophils (%) (Auto) 1 % (0-3) Basophils (%) (Auto) 1 % (0-3) Neutrophils # (Auto) 4.3 x10^3/uL (1.8-7.7) Lymphocytes # (Auto) 1.9 x10^3/uL (1.0-4.8) Monocytes # (Auto) 0.5 x10^3/uL (0.0-1.1) Eosinophils # (Auto) 0.1 x10^3/uL (0.0-0.7) Basophils # (Auto) 0.1 x10^3/uL (0.0-0.2) D-Dimer (Merly) 1.18 ug/mlFEU (0.00-0.50) Sodium Level 140 mmol/L (136-145) 140 mmol/L (136-145) 143 mmol/L (136-145) Potassium Level 3.8 mmol/L (3.5-5.1) 3.6 mmol/L (3.5-5.1) 4.2 mmol/L (3.5-5.1) Chloride Level 105 mmol/L (98-107) 105 mmol/L (98-107) 107 mmol/L (98-107) Carbon Dioxide Level 23 mmol/L (21-32) 28 mmol/L (21-32) 26 mmol/L (21-32) Anion Gap 12 (6-14) 7 (6-14) 10 (6-14) Blood Urea Nitrogen 25 mg/dL (7-20) 18 mg/dL (7-20) 23 mg/dL (7-20) Creatinine 1.2 mg/dL (0.6-1.0) 1.3 mg/dL (0.6-1.0) 1.0 mg/dL (0.6-1.0) Estimated GFR (Cockcroft-Gault) 53.3 48.6 65.8 BUN/Creatinine Ratio 21 (6-20) Glucose Level 153 mg/dL (70-99) 122 mg/dL (70-99) 103 mg/dL (70-99) Calcium Level 8.8 mg/dL (8.5-10.1) 9.0 mg/dL (8.5-10.1) 8.5 mg/dL (8.5-10.1) Total Bilirubin 0.4 mg/dL (0.2-1.0) Aspartate Amino Transf (AST/SGOT) 38 U/L (15-37) Alanine Aminotransferase (ALT/SGPT) 46 U/L (14-59) Alkaline Phosphatase 76 U/L (46-116) Troponin I Quantitative 0.021 ng/mL (0.000-0.055) 1.187 ng/mL (0.000-0.055) KD-Idg-U-Type Natriuretic Peptide 3044 pg/mL (0-124) Total Protein 7.1 g/dL (6.4-8.2) Albumin 4.1 g/dL (3.4-5.0) Albumin/Globulin Ratio 1.4 (1.0-1.7) Magnesium Level 2.1 mg/dL (1.8-2.4) Thyroid Stimulating Hormone (TSH) 1.066 uIU/mL (0.358-3.74) Urine Collection Type Unknown Urine Color Yellow Urine Clarity Clear Urine pH 6.0 Urine Specific [place] 1.015 Urine Protein Negative mg/dL (NEG-TRACE) Urine Glucose (UA) Negative mg/dL (NEG) Urine Ketones (Stick) Negative mg/dL (NEG) Urine Blood Negative (NEG) Urine Nitrite Negative (NEG) Urine Bilirubin Negative (NEG) Urine Urobilinogen Dipstick 0.2 mg/dL (0.2 mg/dL) Urine Leukocyte Esterase Negative (NEG) Urine RBC 0 /HPF (0-2) Urine WBC Rare /HPF (0-4) Urine Squamous Epithelial Cells Occ /LPF Urine Bacteria 0 /HPF (0-FEW) Triglycerides Level 43 mg/dL (0-150) Cholesterol Level 183 mg/dL (0-200) LDL Cholesterol, Calculated 98 mg/dL (0-100) VLDL Cholesterol, Calculated 9 mg/dL (0-40) Non-HDL Cholesterol Calculated 107 mg/dL (0-129) HDL Cholesterol 76 mg/dL (40-60) Cholesterol/HDL Ratio 2.4 Laboratory Tests Test 03/16/19 14:25 03/16/19 17:45 1/11/20 03:30 Sodium Level 140 mmol/L (136-145) 143 mmol/L (136-145) Potassium Level 3.6 mmol/L (3.5-5.1) 4.2 mmol/L (3.5-5.1) Chloride Level 105 mmol/L (98-107) 107 mmol/L (98-107) Carbon Dioxide Level 28 mmol/L (21-32) 26 mmol/L (21-32) Anion Gap 7 (6-14) 10 (6-14) Blood Urea Nitrogen 18 mg/dL (7-20) 23 mg/dL (7-20) Creatinine 1.3 mg/dL (0.6-1.0) 1.0 mg/dL (0.6-1.0) Estimated GFR (Cockcroft-Gault) 48.6 65.8 Glucose Level 122 mg/dL (70-99) 103 mg/dL (70-99) Calcium Level 9.0 mg/dL (8.5-10.1) 8.5 mg/dL (8.5-10.1) Magnesium Level 2.1 mg/dL (1.8-2.4) Troponin I Quantitative 1.187 ng/mL (0.000-0.055) Thyroid Stimulating Hormone (TSH) 1.066 uIU/mL (0.358-3.74) Urine Collection Type Unknown Urine Color Yellow Urine Clarity Clear Urine pH 6.0 Urine Specific [place] 1.015 Urine Protein Negative mg/dL (NEG-TRACE) Urine Glucose (UA) Negative mg/dL (NEG) Urine Ketones (Stick) Negative mg/dL (NEG) Urine Blood Negative (NEG) Urine Nitrite Negative (NEG) Urine Bilirubin Negative (NEG) Urine Urobilinogen Dipstick 0.2 mg/dL (0.2 mg/dL) Urine Leukocyte Esterase Negative (NEG) Urine RBC 0 /HPF (0-2) Urine WBC Rare /HPF (0-4) Urine Squamous Epithelial Cells Occ /LPF Urine Bacteria 0 /HPF (0-FEW) Triglycerides Level 43 mg/dL (0-150) Cholesterol Level 183 mg/dL (0-200) LDL Cholesterol, Calculated 98 mg/dL (0-100) VLDL Cholesterol, Calculated 9 mg/dL (0-40) Non-HDL Cholesterol Calculated 107 mg/dL (0-129) HDL Cholesterol 76 mg/dL (40-60) Cholesterol/HDL Ratio 2.4 Medications Current Medications Sodium Chloride 1,000 ml @ 1,000 mls/hr Q1H IV Last administered on 03/15/19at 21:49; Start 03/15/19 at 21:30; Stop 03/15/19 at 22:29; Status DC Furosemide (Lasix) 40 mg 1X ONCE IVP Last administered on 03/15/19at 22:47; Sta rt 03/15/19 at 22:15; Stop 03/15/19 at 22:16; Status DC Iohexol (Omnipaque 350 Mg/ml) 90 ml 1X ONCE IV Last administered on 03/15/19at 22:18; Start 03/15/19 at 22:15; Stop 03/15/19 at 22:16; Status DC Info (CONTRAST GIVEN -- Rx MONITORING) 1 each PRN DAILY PRN MC SEE COMMENTS; Start 03/15/19 at 22:30; Stop 03/17/19 at 22:29 Acetaminophen (Tylenol) 650 mg PRN Q6HRS PRN PO PAIN Last administered on 03/16/19at 20:07; Start 03/16/19 at 00:30 Sodium Chloride (Normal Saline Flush) 3 ml QSHIFT PRN IV AFTER MEDS AND BLOOD DRAWS; Start 03/16/19 at 14:00 Ondansetron HCl (Zofran) 4 mg PRN Q4HRS PRN IV NAUSEA/VOMITING; Start 03/16/19 at 14:00 Acetaminophen (Tylenol) 650 mg PRN Q4HRS PRN PO TEMP OVER 100.4F OR MILD PAIN; Start 03/16/19 at 14:00 Al Hydroxide/Mg Hydroxide (Mylanta Plus Xs) 30 ml PRN DAILY PRN PO HEARTBURN / GAS; Start 03/16/19 at 14:00 Clonidine HCl (Catapres) 0.1 mg PRN Q6HRS PRN PO SBP>160 OR DBP>90; Start 03/16/19 at 14:00 Docusate Sodium (Colace) 100 mg PRN BID PRN PO CONSTIPATION; Start 03/16/19 at 14:00 Albuterol Sulfate (Ventolin Neb Soln) 2.5 mg PRN Q4HRS PRN NEB SHORTNESS OF BREATH; Start 03/16/19 at 14:00 Guaifenesin (Robitussin) 200 mg PRN Q4HRS PRN PO COUGH; Start 03/16/19 at 14:00 Lorazepam (Ativan) 0.5 mg PRN Q4HRS PRN PO ANXIETY / AGITATION; Start 03/16/19 at 14:00 Enoxaparin Sodium (Lovenox 40mg Syringe) 40 mg DAILY SQ Last administered on 03/17/19at 08:41; Start 03/17/19 at 09:00 Ropinirole HCl (Requip) 2 mg QHS PO Last administered on 03/16/19at 21:23; Start 03/16/19 at 21:00 Furosemide (Lasix) 40 mg 1X ONCE IVP Last administered on 03/16/19at 15:14; Start 03/16/19 at 14:30; Stop 03/16/19 at 14:31; Status DC Aspirin (Ecotrin) 81 mg DAILYWBKFT PO Last administered on 03/17/19at 08:40; Start 03/16/19 at 15:00 Potassium Chloride (Klor-Con) 20 meq 1X ONCE PO Last administered on 03/16/19at 15:18; Start 03/16/19 at 15:15; Stop 03/16/19 at 15:16; Status DC Carvedilol (Coreg) 3.125 mg BIDWMEALS PO Last administered on 03/17/19at 08:40; Start 03/17/19 at 08:00 Iodixanol (Visipaque 320) 100 ml STK-MED ONCE .ROUTE ; Start 03/16/19 at 16:02; Stop 03/16/19 at 16:02; Status DC Lidocaine HCl (Xylocaine-Mpf 1% 2ml Vial) 2 ml STK-MED ONCE .ROUTE ; Start 03/16/19 at 16:02; Stop 03/16/19 at 16:02; Status DC Heparin Sodium/ Sodium Chloride 1,000 ml @ As Directed STK-MED ONCE .ROUTE ; Start 03/16/19 at 16:02; Stop 03/16/19 at 16:02; Status DC Fentanyl Citrate (Fentanyl 2ml Vial) 100 mcg STK-MED ONCE .ROUTE ; Start 03/16/19 at 16:17; Stop 03/16/19 at 16:17; Status DC Midazolam HCl (Versed) 2 mg STK-MED ONCE .ROUTE ; Start 03/16/19 at 16:17; Stop 03/16/19 at 16:17; Status DC Heparin Sodium (Porcine) (Heparin Sodium) 10,000 unit STK-MED ONCE .ROUTE ; Start 03/16/19 at 16:17; Stop 03/16/19 at 16:17; Status DC Verapamil HCl (Verapamil) 5 mg STK-MED ONCE .ROUTE ; Start 03/16/19 at 16:17; Stop 03/16/19 at 16:17; Status DC Nitroglycerin (Nitroglycerin) 200 mcg STK-MED ONCE .ROUTE ; Start 03/16/19 at 16:17; Stop 03/16/19 at 16:17; Status DC Nitroglycerin (Nitroglycerin) 200 mcg 1X ONCE IART Last administered on 03/16/19at 16:40; Start 03/16/19 at 16:45; Stop 03/16/19 at 16:46; Status DC Verapamil HCl (Verapamil) 2.5 mg 1X ONCE IART Last administered on 03/16/19at 16:42; Start 03/16/19 at 16:45; Stop 03/16/19 at 16:46; Status DC Heparin Sodium (Porcine) (Heparin Sodium) 2,500 unit 1X ONCE IART Last administered on 03/16/19at 16:44; Start 03/16/19 at 16:45; Stop 03/16/19 at 16:46; Status DC Heparin Sodium/ Sodium Chloride (HEPARIN for ARTERIAL LINE FLUSH) 1,000 unit 1X ONCE IART Last administered on 03/16/19at 16:40; Start 03/16/19 at 16:45; Stop 03/16/19 at 16:46; Status DC Midazolam HCl (Versed) 2 mg 1X ONCE IV Last administered on 03/16/19at 16:41; Start 03/16/19 at 16:45; Stop 03/16/19 at 16:46; Status DC Fentanyl Citrate (Fentanyl 2ml Vial) 50 mcg 1X ONCE IV Last administered on 03/16/19at 16:41; Start 03/16/19 at 16:45; Stop 03/16/19 at 16:46; Status DC Iohexol (Omnipaque 300 Mg/ml) 34 ml 1X ONCE IART Last administered on 03/16/19at 16:40; Start 03/16/19 at 16:45; Stop 03/16/19 at 16:46; Status DC Lidocaine HCl (Xylocaine-Mpf 1% 2ml Vial) 1 ml 1X ONCE INJ Last administered on 03/16/19at 16:40; Start 03/16/19 at 16:45; Stop 03/16/19 at 16:46; Status DC Active Scripts Active Reported [place] 5-325 Tablet (Acetaminophen/Hydrocodone Bitart) 1 Each Tablet 1-2 Tab PO Q4-6HRS [place] 5-325 Tablet (Acetaminophen/Hydrocodone Bitart) 1 Each Tablet 1-2 Tab PO Q4-6HRS Glucosamine (Glucosamine Sulfate 2KCL) 1,000 Mg Tablet 0 PO Requip (Ropinirole Hcl) 1 Mg Tablet 2 Tab PO QHS Temazepam 30 Mg Capsule 1 Cap PO QHS Vitals/I & O Vital Sign - Last 24 Hours 03/16/19 03/16/19 03/16/19 03/16/19 15:00 16:41 16:42 16:44 Temp 98.2 98.2 Pulse 88 73 73 Resp 18 12 14 B/P (MAP) 111/72 (85) Pulse Ox 98 95 92 O2 Delivery Nasal Cannula Nasal Cannula Nasal Cannula O2 Flow Rate 2.0 3.0 3.0 03/16/19 03/16/19 03/16/19 03/16/19 17:00 17:15 17:30 17:45 Pulse 80 75 71 73 B/P (MAP) 80/50 (60) 97/63 (74) 97/68 (78) 99/69 (79) 03/16/19 03/16/19 03/16/19 03/16/19 18:00 18:30 19:00 20:00 Temp 97.8 97.8 Pulse 83 87 83 Resp 22 B/P (MAP) 99/69 (79) 77/49 (58) 72/48 (56) Pulse Ox 95 O2 Delivery Room Air Room Air 03/16/19 03/17/19 03/17/19 03/17/19 23:30 03:25 07:00 08:20 Temp 98.5 98.0 98.3 98.5 98.0 98.3 Pulse 82 80 76 Resp 18 21 21 B/P (MAP) 99/59 (72) 122/79 (93) 113/74 (87) Pulse Ox 97 94 98 O2 Delivery Room Air Nasal Cannula Nasal Cannula Room Air O2 Flow Rate 2.0 2.0 03/17/19 08:40 Pulse 80 B/P (MAP) 122/79 Intake and Output 03/16/19 03/16/19 03/17/19 15:00 23:00 07:00 Intake Total 240 ml 150 ml Output Total 400 ml 800 ml Balance 240 ml -400 ml -650 ml SHANNON BREWSTER MD Mar 17, 2019 11:05
--- NOTE | 2019-03-17 12:07 | PDOC ---
CARDIOLOGY PROGRESS NOTE SUBJECTIVE: No acute events overnight. Denies any chest pain. Feels like she is back to normal. OBJECTIVE: Vital Signs/I&O: Vital Signs Date Time Temp Pulse Resp B/P (MAP) Pulse Ox O2 Delivery O2 Flow Rate FiO2 03/17/19 08:40 80 122/79 03/17/19 08:20 Room Air 03/17/19 07:00 98.3 21 98 2.0 98.3 I & O 03/16/19 03/16/19 03/17/19 15:00 23:00 07:00 Intake Total 240 ml 150 ml Output Total 400 ml 800 ml Balance 240 ml -400 ml -650 ml Objective: GEN.: No apparent distress. Alert and oriented. HEENT: Head is normocephalic, atraumatic NECK: Supple. LUNGS: Clear to auscultation. HEART: RRR, S1, S2 present. Peripheral pulses intact ABDOMEN: Soft, nontender. Positive bowel sounds. EXTREMITIES: Without any cyanosis. NEUROLOGIC: Normal speech, normal tone PSYCHIATRIC: Normal affect, normal mood. SKIN: No ulcerations CURRENT MEDICATIONS: meds reviewed. ASSESSMENT: 1. Acute on chronic systolic and diastolic hF 2. 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 start coreg 3.125mg bid, Lisinopril 2.5mg daily. Lasix prn for dyspnea. Consider outpt initiation of entresto depending on BP. 2. Discussed lifevest and she will try it. 3. May ultimately need DIRECT MAIL CLERK-D if no improvement in LV function. Thanks. Ok to DC today.. Lifevest can be fitted in her house. AIXA BUTLER MD Mar 17, 2019 12:07
[2019-03-17 12:39] LABS: BASE EXCESS COOX 1 mmol/L (-3-3); HCO3 COOX 24 mmol/L (21-28); METHEMOGLOBIN 0.3 % (0.0-1.9); OXYHEMOGLOBIN 94.9 %; PCO2 COOX 35 mmHg (35-46); PO2 COOX 78 mmHg (65-108); SAT O2 COOX 95 % (92-99)
[2019-03-17] MEDS ORDERED: FUROSEMIDE 20 MG TABLET PO PRN (13:00)
--- NOTE | 2019-03-17 13:29 | PDOC3 ---
Discharge Summary Date of Admission: Mar 16, 2019 Date of Discharge: Mar 17, 2019 Follow-Up: 3-5 days Admitting Diagnosis comment: DISCHARGE DX Assessment/Plan IMPRESSION: 1. No evidence of pulmonary embolism. 2. Diffuse groundglass airspace opacities identified in the bilateral lungs likely infiltrates or congestive changes. 3. soft tissue CHANGES identified about the bronchial branches in the bilateral lower lobes could be bronchitis. 4. Acute pulm edema 5. 8 mm nodule identified in the right middle lobe of the lung. Follow-up per Fleischner Society guidelines with a follow-up CT in 3-6 months. 6. elevated d-dimer 7. hx htn 8. ACUTE HYPOXIC RESP FAILURE 9. REMOTE TOBACCO ABUSE, STOPPED 1987 10. CARDIOMYOPATHY The left ventricular systolic function is severely impaired. The Ejection Fraction is 20-25%. Transmitral Doppler flow pattern is Grade I-abnormal relaxation pattern. 11. Normal angiographic appearance of the coronary arteries. 12. NSTEMI plan admit cvc consult cardiology echo iv lasix O2 SUPPORT PRN TSH Cardiac cath 03/16 PULM CONSULT 6 min walk LIFE VEST COREG BID D/C PLANNING 27 MIN Vitals Vitals Vital Signs Date Time Temp Pulse Resp B/P (MAP) Pulse Ox O2 Delivery O2 Flow Rate FiO2 03/17/19 08:40 80 122/79 03/17/19 08:20 Room Air 03/17/19 07:00 98.3 21 98 2.0 98.3 Physical Exam General: Alert, Oriented X3, Cooperative, No acute distress Heart: Regular rate (SR LBBB), Other (S3; 4/6 systolic murmur loudest to LLS border, apical heave with displaced PMI) Lungs: Clear Abdomen: Normal bowel sounds, Soft, No tenderness Extremities: No clubbing, No cyanosis, Other (1+ bilateral LE pitting edema) Skin: No breakdown, No significant lesion Labs LABS PROCEDURE NARRATIVE INFORMED CONSENT: After explaining the risks and benefits of the procedure and alternatives, informed consent was obtained. The patient was brought electively to the cardiac catheterization lab. A timeout was performed confirming the patient's name, date of , procedure, and site of procedure. All necessary personnel were wearing the appropriate protective equipment and radiation monitor devices. (See nursing notes for medications administered). ACCESS: The right wrist was sterilely prepped and draped in the usual fashion. The right wrist was infiltrated with 1 mL of 2% lidocaine for subcutaneous anesthesia. A 6 [place] Terumo glide sheath was inserted into the right radial artery without difficulty. CORONARY ANGIOGRAPHY: Right and left coronary angiography was performed using a 6Fr TIG 4.0 catheter. Left ventricular end diastolic pressure was obtained with a pigtail catheter and pullback was performed after left ventriculography. All catheter exchanges and advancements were performed over a guidewire. CLOSURE: At case completion the right radial sheath was removed and a Terumo radial band was applied with 13 ml of air. COMPLICATIONS: The patient tolerated the procedure well and there were no immediate complications. FINDINGS: HEMODYNAMICS: LVEDP 14 mm Hg No gradient on LV to aortic pullback. AO: 128/78 LEFT VENTRICULOGRAM:Deferred due to known EF of 25% by echo. CORONARY ANGIOGRAPHY: LM is a large caliber vessel with normal angiographic appearance. LAD is a large caliber vessel with normal angiographic appearance. D1 is a moderate caliber vessel with normal angiographic apeparance. LCx is a large caliber non-dominant vessel with normal angiographic appearance. OM1 is a moderate caliber vessel with normal angiographic appearance. RCA is a moderate caliber dominant vessel with normal angiographic appearance. RPDA is a moderate caliber vessel with normal angiographic appearance. Conclusion 1. Normal left sided filling pressures. 2. Normal angiographic appearance of the coronary arteries. Recommendations 1. Aggressive medical therapy Signed by : Aixa Finney, Electronically Approved : 03/17/2019 10:02:49 DICTATED and SIGNED BY: AIXA FINNEY MD DATE: 03/16/19 1647 LEFT VENTRICLE The Left Ventricle is moderately dilated. There is borderline to mild concentric left ventricular hypertrophy. The left ventricular systolic function is severely impaired. The Ejection Fraction is 20-25%. There is global hypokinesis of the left ventricle. There is hypokinesis of the setal wall. Transmitral Doppler flow pattern is Grade I-abnormal relaxation pattern. RIGHT VENTRICLE The right ventricle is normal size. There is normal right ventricular wall thickness. The right ventricular systolic function is normal. ATRIA The left atrium is mildly dilated. The right atrium size is normal. The interatrial septum is intact with no evidence for an atrial septal defect or patent foramen ovale as noted on 2-D or Doppler imaging. AORTIC VALVE The aortic valve is normal in structure and function. Doppler and Color Flow revealed no significant aortic regurgitation. There is no significant aortic valvular stenosis. MITRAL VALVE The mitral valve is normal in structure and function. A borderline mitral valve prolapse is present. There is no mitral valve stenosis. Doppler and Color-flow revealed trace to mild mitral regurgitation. TRICUSPID VALVE The tricuspid valve is normal in structure and function. Doppler and Color Flow revealed trace tricuspid regurgitation with an estimated PAP of 30 mmHg. There is no tricuspid valve stenosis. PULMONIC VALVE The pulmonic valve is not well visualized. Doppler and Color Flow revealed no pulmonic valvular regurgitation. GREAT VESSELS The aortic root is normal in size. The IVC is normal in size and collapses >50% with inspiration. PERICARDIAL EFFUSION There is no evidence of significant pericardial effusion. Critical Notification Physician Notified Critical Value: Yes <Conclusion> The left ventricular systolic function is severely impaired. The Ejection Fraction is 20-25%. Transmitral Doppler flow pattern is Grade I-abnormal relaxation pattern. Trace to mild mitral regurgitation. Trace tricuspid regurgitation with an estimated PAP of 30 mmHg. There is no evidence of significant pericardial effusion. Signed by : Rob Delcid, Electronically Approved : 03/16/2019 16:19:10 FINAL DIAGNOSIS Problems Medical Problems: (1) Hypertension Status: Acute (2) Pulmonary edema Status: Acute Brief Hospital Course Ms. Sigala is a 74 old [sex] who presented with [ ACUTE CHF, CARDIOMYOPATHY ] CONDITION AT DISCHARGE: Improved Discharge Medications Current Medications Sodium Chloride 1,000 ml @ 1,000 mls/hr Q1H IV Last administered on 03/15/19at 21:49; Start 03/15/19 at 21:30; Stop 03/15/19 at 22:29; Status DC Furosemide (Lasix) 40 mg 1X ONCE IVP Last administered on 03/15/19at 22:47; Start 03/15/19 at 22:15; Stop 03/15/19 at 22:16; Status DC Iohexol (Omnipaque 350 Mg/ml) 90 ml 1X ONCE IV Last administered on 03/15/19at 22:18; Start 03/15/19 at 22:15; Stop 03/15/19 at 22:16; Status DC Info (CONTRAST GIVEN -- Rx MONITORING) 1 each PRN DAILY PRN MC SEE COMMENTS; Start 03/15/19 at 22:30; Stop 03/17/19 at 22:29 Acetaminophen (Tylenol) 650 mg PRN Q6HRS PRN PO PAIN Last administered on 03/16/19at 20:07; Start 03/16/19 at 00:30 Sodium Chloride (Normal Saline Flush) 3 ml QSHIFT PRN IV AFTER MEDS AND BLOOD DRAWS; Start 03/16/19 at 14:00 Ondansetron HCl (Zofran) 4 mg PRN Q4HRS PRN IV NAUSEA/VOMITING; Start 03/16/19 at 14:00 Acetaminophen (Tylenol) 650 mg PRN Q4HRS PRN PO TEMP OVER 100.4F OR MILD PAIN; Start 03/16/19 at 14:00 Al Hydroxide/Mg Hydroxide (Mylanta Plus Xs) 30 ml PRN DAILY PRN PO HEARTBURN / GAS; Start 03/16/19 at 14:00 Clonidine HCl (Catapres) 0.1 mg PRN Q6HRS PRN PO SBP>160 OR DBP>90; Start 03/16/19 at 14:00 Docusate Sodium (Colace) 100 mg PRN BID PRN PO CONSTIPATION; Start 03/16/19 at 14:00 Albuterol Sulfate (Ventolin Neb Soln) 2.5 mg PRN Q4HRS PRN NEB SHORTNESS OF BREATH; Start 03/16/19 at 14:00 Guaifenesin (Robitussin) 200 mg PRN Q4HRS PRN PO COUGH; Start 03/16/19 at 14:00 Lorazepam (Ativan) 0.5 mg PRN Q4HRS PRN PO ANXIETY / AGITATION; Start 03/16/19 at 14:00 Enoxaparin Sodium (Lovenox 40mg Syringe) 40 mg DAILY SQ Last administered on 03/17/19at 08:41; Start 03/17/19 at 09:00 Ropinirole HCl (Requip) 2 mg QHS PO Last administered on 03/16/19at 21:23; Start 03/16/19 at 21:00 Furosemide (Lasix) 40 mg 1X ONCE IVP Last administered on 03/16/19at 15:14; St art 03/16/19 at 14:30; Stop 03/16/19 at 14:31; Status DC Aspirin (Ecotrin) 81 mg DAILYWBKFT PO Last administered on 03/17/19at 08:40; Start 03/16/19 at 15:00 Potassium Chloride (Klor-Con) 20 meq 1X ONCE PO Last administered on 03/16/19at 15:18; Start 03/16/19 at 15:15; Stop 03/16/19 at 15:16; Status DC Carvedilol (Coreg) 3.125 mg BIDWMEALS PO Last administered on 03/17/19at 08:40; Start 03/17/19 at 08:00 Iodixanol (Visipaque 320) 100 ml STK-MED ONCE .ROUTE ; Start 03/16/19 at 16:02; Stop 03/16/19 at 16:02; Status DC Lidocaine HCl (Xylocaine-Mpf 1% 2ml Vial) 2 ml STK-MED ONCE .ROUTE ; Start 03/16/19 at 16:02; Stop 03/16/19 at 16:02; Status DC Heparin Sodium/ Sodium Chloride 1,000 ml @ As Directed STK-MED ONCE .ROUTE ; Start 03/16/19 at 16:02; Stop 03/16/19 at 16:02; Status DC Fentanyl Citrate (Fentanyl 2ml Vial) 100 mcg STK-MED ONCE .ROUTE ; Start 03/16/19 at 16:17; Stop 03/16/19 at 16:17; Status DC Midazolam HCl (Versed) 2 mg STK-MED ONCE .ROUTE ; Start 03/16/19 at 16:17; Stop 03/16/19 at 16:17; Status DC Heparin Sodium (Porcine) (Heparin Sodium) 10,000 unit STK-MED ONCE .ROUTE ; Start 03/16/19 at 16:17; Stop 03/16/19 at 16:17; Status DC Verapamil HCl (Verapamil) 5 mg STK-MED ONCE .ROUTE ; Start 03/16/19 at 16:17; Stop 03/16/19 at 16:17; Status DC Nitroglycerin (Nitroglycerin) 200 mcg STK-MED ONCE .ROUTE ; Start 03/16/19 at 16:17; Stop 03/16/19 at 16:17; Status DC Nitroglycerin (Nitroglycerin) 200 mcg 1X ONCE IART Last administered on 03/16/19at 16:40; Start 03/16/19 at 16:45; Stop 03/16/19 at 16:46; Status DC Verapamil HCl (Verapamil) 2.5 mg 1X ONCE IART Last administered on 03/16/19at 16:42; Start 03/16/19 at 16:45; Stop 03/16/19 at 16:46; Status DC Heparin Sodium (Porcine) (Heparin Sodium) 2,500 unit 1X ONCE IART Last administered on 03/16/19at 16:44; Start 03/16/19 at 16:45; Stop 03/16/19 at 16:46; Status DC Heparin Sodium/ Sodium Chloride (HEPARIN for ARTERIAL LINE FLUSH) 1,000 unit 1X ONCE IART Last administered on 03/16/19at 16:40; Start 03/16/19 at 16:45; Stop 03/16/19 at 16:46; Status DC Midazolam HCl (Versed) 2 mg 1X ONCE IV Last administered on 03/16/19at 16:41; Start 03/16/19 at 16:45; Stop 03/16/19 at 16:46; Status DC Fentanyl Citrate (Fentanyl 2ml Vial) 50 mcg 1X ONCE IV Last administered on 03/16/19at 16:41; Start 03/16/19 at 16:45; Stop 03/16/19 at 16:46; Status DC Iohexol (Omnipaque 300 Mg/ml) 34 ml 1X ONCE IART Last administered on 03/16/19at 16:40; Start 03/16/19 at 16:45; Stop 03/16/19 at 16:46; Status DC Lidocaine HCl (Xylocaine-Mpf 1% 2ml Vial) 1 ml 1X ONCE INJ Last administered on 03/16/19at 16:40; Start 03/16/19 at 16:45; Stop 03/16/19 at 16:46; Status DC Lisinopril (Prinivil) 2.5 mg DAILY PO ; Start 03/17/19 at 14:00 Furosemide (Lasix) 20 mg DAILY PRN PO EXTREMITY SWELLING; Start 03/17/19 at 13:00 Active Scripts Active Reported [place] 5-325 Tablet (Acetaminophen/Hydrocodone Bitart) 1 Each Tablet 1-2 Tab PO Q4-6HRS [place] 5-325 Tablet (Acetaminophen/Hydrocodone Bitart) 1 Each Tablet 1-2 Tab PO Q4-6HRS Glucosamine (Glucosamine Sulfate 2KCL) 1,000 Mg Tablet 0 PO Requip (Ropinirole Hcl) 1 Mg Tablet 2 Tab PO QHS Temazepam 30 Mg Capsule 1 Cap PO QHS Vital Signs Vital Signs Date Time Temp Pulse Resp B/P (MAP) Pulse Ox O2 Delivery O2 Flow Rate FiO2 03/17/19 12:15 Room Air 03/17/19 11:00 97.9 78 21 108/71 (83) 97 2.0 97.9 Labs Laboratory Tests Test 03/15/19 21:15 03/16/19 14:25 03/16/19 17:45 03/17/19 03:30 White Blood Count 6.9 x10^3/uL (4.0-11.0) Red Blood Count 4.77 x10^6/uL (3.50-5.40) Hemoglobin 13.4 g/dL (12.0-15.5) Hematocrit 40.6 % (36.0-47.0) Mean Corpuscular Volume 85 fL (79-100) Mean Corpuscular Hemoglobin 28 pg (25-35) Mean Corpuscular Hemoglobin Concent 33 g/dL (31-37) Red Cell Distribution Width 15.1 % (11.5-14.5) Platelet Count 166 x10^3/uL (140-400) Neutrophils (%) (Auto) 62 % (31-73) Lymphocytes (%) (Auto) 28 % (24-48) Monocytes (%) (Auto) 8 % (0-9) Eosinophils (%) (Auto) 1 % (0-3) Basophils (%) (Auto) 1 % (0-3) Neutrophils # (Auto) 4.3 x10^3/uL (1.8-7.7) Lymphocytes # (Auto) 1.9 x10^3/uL (1.0-4.8) Monocytes # (Auto) 0.5 x10^3/uL (0.0-1.1) Eosinophils # (Auto) 0.1 x10^3/uL (0.0-0.7) Basophils # (Auto) 0.1 x10^3/uL (0.0-0.2) D-Dimer (Merly) 1.18 ug/mlFEU (0.00-0.50) Sodium Level 140 mmol/L (136-145) 140 mmol/L (136-145) 143 mmol/L (136-145) Potassium Level 3.8 mmol/L (3.5-5.1) 3.6 mmol/L (3.5-5.1) 4.2 mmol/L (3.5-5.1) Chloride Level 105 mmol/L (98-107) 105 mmol/L (98-107) 107 mmol/L (98-107) Carbon Dioxide Level 23 mmol/L (21-32) 28 mmol/L (21-32) 26 mmol/L (21-32) Anion Gap 12 (6-14) 7 (6-14) 10 (6-14) Blood Urea Nitrogen 25 mg/dL (7-20) 18 mg/dL (7-20) 23 mg/dL (7-20) Creatinine 1.2 mg/dL (0.6-1.0) 1.3 mg/dL (0.6-1.0) 1.0 mg/dL (0.6-1.0) Estimated GFR (Cockcroft-Gault) 53.3 48.6 65.8 BUN/Creatinine Ratio 21 (6-20) Glucose Level 153 mg/dL (70-99) 122 mg/dL (70-99) 103 mg/dL (70-99) Calcium Level 8.8 mg/dL (8.5-10.1) 9.0 mg/dL (8.5-10.1) 8.5 mg/dL (8.5-10.1) Total Bilirubin 0.4 mg/dL (0.2-1.0) Aspartate Amino Transf (AST/SGOT) 38 U/L (15-37) Alanine Aminotransferase (ALT/SGPT) 46 U/L (14-59) Alkaline Phosphatase 76 U/L (46-116) Troponin I Quantitative 0.021 ng/mL (0.000-0.055) 1.187 ng/mL (0.000-0.055) ZO-Emh-K-Type Natriuretic Peptide 3044 pg/mL (0-124) Total Protein 7.1 g/dL (6.4-8.2) Albumin 4.1 g/dL (3.4-5.0) Albumin/Globulin Ratio 1.4 (1.0-1.7) Magnesium Level 2.1 mg/dL (1.8-2.4) Thyroid Stimulating Hormone (TSH) 1.066 uIU/mL (0.358-3.74) Urine Collection Type Unknown Urine Color Yellow Urine Clarity Clear Urine pH 6.0 Urine Specific [place] 1.015 Urine Protein Negative mg/dL (NEG-TRACE) Urine Glucose (UA) Negative mg/dL (NEG) Urine Ketones (Stick) Negative mg/dL (NEG) Urine Blood Negative (NEG) Urine Nitrite Negative (NEG) Urine Bilirubin Negative (NEG) Urine Urobilinogen Dipstick 0.2 mg/dL (0.2 mg/dL) Urine Leukocyte Esterase Negative (NEG) Urine RBC 0 /HPF (0-2) Urine WBC Rare /HPF (0-4) Urine Squamous Epithelial Cells Occ /LPF Urine Bacteria 0 /HPF (0-FEW) Triglycerides Level 43 mg/dL (0-150) Cholesterol Level 183 mg/dL (0-200) LDL Cholesterol, Calculated 98 mg/dL (0-100) VLDL Cholesterol, Calculated 9 mg/dL (0-40) Non-HDL Cholesterol Calculated 107 mg/dL (0-129) HDL Cholesterol 76 mg/dL (40-60) Cholesterol/HDL Ratio 2.4 Test 03/17/19 12:15 O2 Saturation 95 % (92-99) Arterial Blood pH 7.46 (7.35-7.45) Arterial Blood pCO2 at Patient Temp 35 mmHg (35-46) Arterial Blood pO2 at Patient Temp 78 mmHg (65-108) Arterial Blood HCO3 24 mmol/L (21-28) Arterial Blood Base Excess 1 mmol/L (-3-3) Oxyhemoglobin 94.9 % Methemoglobin 0.3 % (0.0-1.9) Carbon Monoxide, Quantitative 0.0 % (0.0-1.9) FiO2 21 Laboratory Tests Test 03/16/19 14:25 03/16/19 17:45 03/17/19 03:30 03/17/19 12:15 Sodium Level 140 mmol/L (136-145) 143 mmol/L (136-145) Potassium Level 3.6 mmol/L (3.5-5.1) 4.2 mmol/L (3.5-5.1) Chloride Level 105 mmol/L (98-107) 107 mmol/L (98-107) Carbon Dioxide Level 28 mmol/L (21-32) 26 mmol/L (21-32) Anion Gap 7 (6-14) 10 (6-14) Blood Urea Nitrogen 18 mg/dL (7-20) 23 mg/dL (7-20) Creatinine 1.3 mg/dL (0.6-1.0) 1.0 mg/dL (0.6-1.0) Estimated GFR (Cockcroft-Gault) 48.6 65.8 Glucose Level 122 mg/dL (70-99) 103 mg/dL (70-99) Calcium Level 9.0 mg/dL (8.5-10.1) 8.5 mg/dL (8.5-10.1) Magnesium Level 2.1 mg/dL (1.8-2.4) Troponin I Quantitative 1.187 ng/mL (0.000-0.055) Thyroid Stimulating Hormone (TSH) 1.066 uIU/mL (0.358-3.74) Urine Collection Type Unknown Urine Color Yellow Urine Clarity Clear Urine pH 6.0 Urine Specific [place] 1.015 Urine Protein Negative mg/dL (NEG-TRACE) Urine Glucose (UA) Negative mg/dL (NEG) Urine Ketones (Stick) Negative mg/dL (NEG) Urine Blood Negative (NEG) Urine Nitrite Negative (NEG) Urine Bilirubin Negative (NEG) Urine Urobilinogen Dipstick 0.2 mg/dL (0.2 mg/dL) Urine Leukocyte Esterase Negative (NEG) Urine RBC 0 /HPF (0-2) Urine WBC Rare /HPF (0-4) Urine Squamous Epithelial Cells Occ /LPF Urine Bacteria 0 /HPF (0-FEW) Triglycerides Level 43 mg/dL (0-150) Cholesterol Level 183 mg/dL (0-200) LDL Cholesterol, Calculated 98 mg/dL (0-100) VLDL Cholesterol, Calculated 9 mg/dL (0-40) Non-HDL Cholesterol Calculated 107 mg/dL (0-129) HDL Cholesterol 76 mg/dL (40-60) Cholesterol/HDL Ratio 2.4 O2 Saturation 95 % (92-99) Arterial Blood pH 7.46 (7.35-7.45) Arterial Blood pCO2 at Patient Temp 35 mmHg (35-46) Arterial Blood pO2 at Patient Temp 78 mmHg (65-108) Arterial Blood HCO3 24 mmol/L (21-28) Arterial Blood Base Excess 1 mmol/L (-3-3) Oxyhemoglobin 94.9 % Methemoglobin 0.3 % (0.0-1.9) Carbon Monoxide, Quantitative 0.0 % (0.0-1.9) FiO2 21 Allergies Allergies Coded Allergies Type Severity Reaction Last Updated Verified No Known Drug Allergies 04/19/17 No Disposition/Orders: D/C to Home SHANNON BREWSTER MD Mar 17, 2019 13:29
[2019-03-17] MEDS ORDERED: LISI-338 PO (13:32)
[2019-03-17] MEDS ORDERED: FURO20TA3 PO (13:32)
[2019-03-17] MEDS ORDERED: ASPI-612 PO (13:32)
[2019-03-17] MEDS ORDERED: ACET325T9 PO (13:32)
[2019-03-17] MEDS ORDERED: CARV3.1210 PO (13:32)
[2019-03-17] MEDS ORDERED: DOCU-153 PO (13:32)
--- NOTE | 2019-03-17 13:33 | DISCH ---
DISCHARGE INSTRUCTIONS Condition on Discharge Condition on Discharge: Guarded Activity After Discharge Activity Instructions for Disc: Activity as tolerated, Avoid exertion Driving Instructions after Dis: Do not drive today Diet after Discharge Diet after Discharge: Cardiac Checks after Discharge Checks after discharge: Check blood press - daily, Weigh Yourself Daily Contacting the DR. after DC Call your doctor for: If your condition worsens SHANNON BREWSTER MD Mar 17, 2019 13:33
[2019-03-17] MEDS ORDERED: LISINOPRIL 5 MG TABLET. PO SCH (14:00)
[2019-03-17 15:00] VITALS: BP 98/66
--- NOTE | 2019-03-17 15:50 | NUR ---
DISCUSSED DISCHARGE INSTRUCTIONS WITH PATIENT. TELE MONITOR OFF AND IV OUT. PATIENT STABLE AT TIME OF DISCHARGE WITH NO COMPLAINTS. LASIX, COREG, ASPIRIN, AND LISINOPRIL PRESCRIPTIONS CALLED INTO [facility]. [facility] FAXED INFORMATION. WILL FOLLOW UP WITH PATIENT AT HER HOME BECAUSE PATIENT DOESNT WANT TO WAIT FOR [facility] TO COME TO HOSPITAL FOR FITTING. PATIENT ESCORTED BY WHEELCHAIR TO [facility]ONS PERSONAL VEHICLE.
== END 2019-03-17 16:53 | disposition home or self-care (01) | DRG 280 ==
LOC: ER 21:04 → 2 SOUTH 22:56
PROVIDERS: ADMIT Internal Medicine; ATTEND Internal Medicine
PROC: 4A023N7 Measurement of Cardiac Sampling and Pressure, Left Heart, Percutaneous Approach (ICD-10-PCS; principal; 2019-03-15)
PROC: B2111ZZ Fluoroscopy of Multiple Coronary Arteries using Low Osmolar Contrast (ICD-10-PCS; 2019-03-15)
PROC: B2151ZZ Fluoroscopy of Left Heart using Low Osmolar Contrast (ICD-10-PCS; 2019-03-15)
DX: I11.0 Hypertensive heart disease with heart failure (principal); I21.4 Non-ST elevation (NSTEMI) myocardial infarction; J96.01 Acute respiratory failure with hypoxia; N17.9 Acute kidney failure, unspecified; I50.43 Acute on chronic combined systolic (congestive) and diastolic (congestive) heart failure; I42.8 Other cardiomyopathies; K21.9 Gastro-esophageal reflux disease without esophagitis; M19.90 Unspecified osteoarthritis, unspecified site; G25.81 Restless legs syndrome; I44.7 Left bundle-branch block, unspecified; I34.1 Nonrheumatic mitral (valve) prolapse; Z87.891 Personal history of nicotine dependence; Z83.2 Family history of diseases of the blood and blood-forming organs and certain disorders involving the immune mechanism; Z82.49 Family history of ischemic heart disease and other diseases of the circulatory system
CPT/HCPCS: 36415; 36600; 71045; 71275; 80048; 80053; 80061; 81001; 82805; 83735; 83880; 84443; 84484; 85025; 85379; 93005; 93306; 93458; 96361; 96374; 99152; C1769; C1892; J1644; J1650; J1940; J2250; J3010; J3490; J7030; Q9967; 99285-25; G0378

== ENCOUNTER → 2019-05-23 | Outpatient (CLI) | payer MEDICARE, OTHER ==
[~2019-05-23] MED LIST changes: +ACET325T9 PO; +ASPI-612 PO; +CARV3.1210 PO; +DOCU-153 PO; +FURO20TA3 PO; +LISI-338 PO
--- NOTE | 2019-05-23 16:16 | KCIC ---
EXAM: Bilateral digital screening mammogram with tomosynthesis. HISTORY: 74-year-old female presents for screening mammography. TECHNIQUE: Full-field digital craniocaudal and mediolateral oblique 2D and 3D tomosynthesis images of both breasts are obtained for evaluation. Computer aided detection with OctroD software version 9.3 was applied. COMPARISON: 10/10/2015 BREAST PARENCHYMAL DENSITY: Level C - Heterogeneously dense. FINDINGS: There is no new suspicious mass, microcalcification or region of architectural distortion. IMPRESSION: BI-RADS Category 2: Benign finding(s). RECOMMENDATION: Annual mammography is recommended. If your mammogram demonstrates that you have dense breast tissue, which could hide abnormalities, and if you have other risk factors for breast cancer that have been identified, you might benefit from supplemental screening tests that may be suggested by your ordering physician. Dense breast tissue, in and of itself, is a relatively common condition. This information is not provided to cause undue concern, but rather to raise your awareness and to promote discussion with your physician regarding the presence of other risk factors, in addition to dense breast tissue. A report of your mammography results will be sent to you and your physician. You should contact your physician if you have any questions or concerns regarding this report. Mammography is a sensitive method for finding small breast cancers, but it does not detect them all and is not a substitute for careful clinical examination. A negative mammogram does not negate a clinically suspicious finding and should not result in delay in biopsying a clinically suspicious abnormality. PQRS compliance statement - Patient information was entered into a reminder system with a target due date for the next mammogram. "Our facility is accredited by the [employer] Mammography Program." Electronically signed by: Rowena Pizarro MD (05/23/2019 4:13 PM) [facility]
== END | disposition home or self-care (01) ==
LOC: KCIC MAMMO 15:32
PROVIDERS: ATTEND Nurse Practitioner Family
DX: Z12.31 Encounter for screening mammogram for malignant neoplasm of breast (principal)
CPT/HCPCS: 77063; 77067

== ENCOUNTER → 2019-07-26 | Outpatient (CLI) | payer MEDICARE ==
[~2019-07-26] MED LIST changes: +HEPARIN for NUC MED 500 UNIT/5 ML DISP.SYRIN. IV ONE
--- NOTE | 2019-07-27 08:20 | RAD ---
MR#: [id number] Date of Study: 07/26/2019 Ordering Physician: AIXA BUTLER, Referring Physician: IVANIA SHELTON Tech: RT Poncho (R) (N) APPROVED REPORT Test Indications: Multiple gated acquisition (MUGA) scan/radionuclide ventriculography to assess lef t ventricular function in a patient with cardiomyopathy Resting Heart Rate: 70 bpm Rest: Stress: Viability: Radiopharm.TC99M RBC'S [id number] Duration 15min. Img Date 07/26/2019 Viability with Stress Delayed Images were acquired by Rowena Moyer, Brandon Shepard, Alba Reed, Steven Hansen, Mercedes Enriquez, Artur Cerda, RT (R) (N) at , Date/Time. LV Perfusion 22 MCI of technetium-99 and labeled red blood cells were injected intravenously and gated images of t he heart were acquired in standard projections with calculation of ejection fraction. Wall Motion Severe left ventricular systolic dysfunction with ejection fraction calculated at 26%. The right savannah tricular systolic function is mildly diminished. The left ventricle is moderately enlarged. Conclusion 1. The left ventricular ejection fraction was calculated at 26% on MUGA scan. Signed by : Rob Delcid, Electronically Approved : 07/27/2019 08:20:27
== END | disposition home or self-care (01) ==
LOC: NM 12:00
PROVIDERS: ATTEND Internal Medicine Cardiovascular Disease
DX: I51.7 Cardiomegaly (principal); I42.9 Cardiomyopathy, unspecified
CPT/HCPCS: 78472; A9560

== ENCOUNTER → 2019-08-09 | Outpatient (CLI) | payer MEDICARE ==
[~2019-08-09] MED LIST changes: -HEPARIN for NUC MED 500 UNIT/5 ML DISP.SYRIN. IV ONE
--- NOTE | 2019-08-09 10:02 | RAD ---
EXAM: CT Chest without IV contrast INDICATION: Reason: Lung Nodule / Spl. Instructions: / History: TECHNIQUE: Multi-detector row CT images were acquired from the thoracic inlet through the upper abdomen without the use of IV contrast. Sagittal and coronal images were acquired from the transaxial data. All CT scans performed at this facility utilize dose optimization techniques as appropriate to the exam, including the following: Automated exposure control and adjustment of the mA and/or KV according to patient size (this includes techniques or standardized protocols for targeted exams where dose is indication/reason for exam). COMPARISON: None FINDINGS: The absence of IV contrast limits evaluation of soft tissue pathology. CARDIOVASCULAR: Stable mild left ventricular enlargement. Normal caliber thoracic aorta with minimal scattered arterial calcifications. MEDIASTINUM & COSMO: No adenopathy or masses. LUNGS: Slight interval decrease in the previously reported 8mm lateral segment right middle lobe pulmonary nodule, now measuring 6 mm (image 176 of axial series 9). No new pulmonary nodules are identified. PLEURAL SPACE: No pleural effusions or pneumothorax. OSSEOUS & SOFT TISSUE: S-shaped scoliotic curvature of the thoracolumbar spine ABDOMEN: The visualized portions of the upper abdomen are unremarkable. IMPRESSION: Slight interval decrease in right middle lobe pulmonary nodule from 8 to 6 mm, supporting a benign etiology. Per Fleischner Society guidelines, in low-risk patients, single pulmonary nodule 6 to 8 mm should be followed at 6-12 months. This examination completes that recommended follow up. Thereafter, a CT could be considered at 18-24 months. Given the interval decrease in size, additional follow-up imaging examinations may not be necessary, but could still be considered and pursued if deemed clinically appropriate, such as if the patient is considered at high risk for lung cancer. Electronically signed by: Dane Morris MD (08/09/2019 9:59 AM) [id number]
== END | disposition home or self-care (01) ==
LOC: CT 09:15
PROVIDERS: ATTEND Internal Medicine Critical Care Medicine
DX: R91.1 Solitary pulmonary nodule (principal); I25.10 Atherosclerotic heart disease of native coronary artery without angina pectoris; I70.0 Atherosclerosis of aorta; I51.7 Cardiomegaly
CPT/HCPCS: 71250

== ENCOUNTER → 2019-11-06 | Outpatient (CLI) | payer MEDICARE ==
[~2019-11-06] MED LIST changes: -ASPI-612 PO; +ASPI-886 PO
--- NOTE | 2019-11-06 12:22 | KCIC ---
MRI Lumbar Spine without contrast History: Low back pain, right radiculopathy, degenerative disc disease Technique: Multiplanar, multi sequential noncontrast MR imaging was performed of the lumbar spine. Comparison: None Findings: There is some motion. Lumbar vertebral body stature is maintained. There is very mild grade 1 anterior spondylolisthesis at L5-S1 and L3-4. There is advanced degenerative disc disease at L4-5, to lesser degree at L2-3 and L5-S1 and mild to moderate degenerative disc disease at L3-4. There is also advanced degenerative disc disease at T10-11, to a lesser degree at T11-12. There is multilevel variable endplate change, also endplate edema greatest at L2-3, L5-S1, and T10-11. There is a hemangioma of the left inferior L2 vertebral body, also focus of S1. The conus terminates at L1-2. There is mild levoscoliosis centered near L3. T10-11: This level was not included on the axial images. There is minimal disc osteophyte complex and shallow bulge/protrusion slightly indenting the ventral thecal sac. Facet degenerative change contributes to likely severe right and likely [id number]-vp-[id number] left neural foramina compromise. T11-12: This level was not included on the axial images. There is shallow posterior bulge/protrusion slightly indenting the ventral thecal sac without significant spinal stenosis. T12-L1: This level was not included on the axial images. There is a shallow posterior protrusion without significant spinal stenosis. There is mild narrowing of the left neural foramen. L1-L2: Spinal canal and neural foramina are adequate. There is mild facet degenerative change. L2-L3: There is mild buckling of the ligament flavum. There is mild facet degenerative change greater on right. There is posterior bulge indenting the ventral thecal sac greater in the lateral recesses bilaterally, mild narrowing of the far lateral recesses greater on the right. There is mild bilateral neural foramina compromise, shallow protrusion contacting the undersurface exiting left L2 nerve root in the proximal extraforaminal region L3-L4: There is minimal disc osteophyte complex and bulge/protrusion. There is mild to moderate facet hypertrophic change and buckling of the ligamentum flavum. There is beda-fc-tsafanow narrowing of the far lateral recesses bilaterally, narrowing of the central canal. There is mild bilateral neural foramina compromise. Shallow protrusion contacts the undersurface exiting left L3 nerve root in the distal neural foramen and proximal extraforaminal region. L4-L5: There is disc osteophyte complex. There is mild buckling of the ligamentum flavum and facet hypertrophic change. There is arby-lz-loxzrwei narrowing of the spinal canal including narrowing of the lateral recesses bilaterally. There is kfxe-mf-qqgfxnzq narrowing of bilateral neural foramina, disc osteophyte complex contacting the undersurfaces of the exiting L4 nerve roots bilaterally in the distal neural foramina and proximal extraforaminal regions greater on the left. L5-S1: There is severe facet degenerative change bilaterally. There is moderate buckling of the ligamentum flavum. There is minimal disc osteophyte complex. There is fairly severe right and moderate to severe left lateral recess stenosis from posteriorly, ixti-rl-pchvhrri narrowing of the central canal greater in the transverse dimension. There is fairly severe left and moderate to severe right neural foramina compromise, contact of the exiting L5 nerve roots bilaterally greater on the left. Neural foramina compromise is due to facet degenerative change disc osteophyte complex. Impression: 1. There is mild to moderate spinal stenosis including narrowing of the lateral recesses bilaterally at L3-4 and L4-5, also lateral recess stenosis bilaterally at L5-S1 greater on the right at location of the descending S1 nerve roots. There is mild lateral recess stenosis bilaterally at L2-3. 2. There is multilevel degenerative disc disease variably throughout lumbar spine other than sparing of L1-L2, also of visualized inferior thoracic levels. There is multilevel spondylosis. 3. There is multilevel lumbar neural foramina compromise, more significant narrowing bilaterally at L5-S1, lesser degree of narrowing bilaterally at L4-5, other minimal narrowing as described. There is contact of the exiting extraforaminal nerve roots as described. There is also right greater than left T10-11 neural foramina compromise. 4. There is mild lumbar levoscoliosis. There is mild abnormal alignment as stated, multilevel facet degenerative change. Electronically signed by: Peng Novak MD (11/06/2019 12:19 PM) [id number]
== END | disposition home or self-care (01) ==
LOC: KCIC MRI 10:49
PROVIDERS: ATTEND Nurse Practitioner Family
DX: M47.817 Spondylosis without myelopathy or radiculopathy, lumbosacral region (principal); M51.37 Other intervertebral disc degeneration, lumbosacral region; M43.07 Spondylolysis, lumbosacral region; M48.07 Spinal stenosis, lumbosacral region; M51.34 Other intervertebral disc degeneration, thoracic region; M41.86 Other forms of scoliosis, lumbar region; M25.78 Osteophyte, vertebrae
CPT/HCPCS: 72148

== ENCOUNTER → 2020-09-01 | Outpatient (CLI) | payer MEDICARE ==
[~2020-09-01] MED LIST changes: -LISI-338 PO; +LISI-517 PO
--- NOTE | 2020-09-01 12:11 | KCIC ---
CT of the chest without contrast:09/01/2020 10:16 AM History: Follow-up pulmonary nodule Technique: CT imaging of the chest was performed without contrast Comparison: CT of the chest August 09, 2019 Findings: Stable appearance of noncalcified nodule right middle lobe measuring 5 to 6 mm. No new nodules are id entified. No focal infiltrates, pneumothorax, or pleural effusion is seen.. Heart size is normal. No evidence of mediastinal adenopathy is seen. No acute osseous changes are identified. Degenerative and scoliotic changes of the thoracic spine again noted. Impression:. 1. Stable 5 to 6 mm pulmonary nodule, right middle lobe. 2. No other acute cardiopulmonary process. CT DOSING PQRS STATEMENT: One or more of the following individualized dose reduction techniques were utilized for this examinat ion: 1. Automated exposure control 2. Adjustment of the mA and/or kV according to patient size 3. Use of iterative reconstruction technique Electronically signed by: Porter Zamorano MD (09/01/2020 12:08 PM) [id number]
== END ==
LOC: KCIC CT 10:14
PROVIDERS: ATTEND Internal Medicine Pulmonary Disease
DX: R91.1 Solitary pulmonary nodule (principal); M41.84 Other forms of scoliosis, thoracic region
CPT/HCPCS: 71250

== ENCOUNTER → 2020-10-30 | Outpatient (CLI) | payer MEDICARE ==
[~2020-10-30] MED LIST changes: +DOCU-148 PO; -DOCU-153 PO; +FURO-69 PO; +METO-239 PO; +SACU1TAB4 PO; +SPIR25TA5 PO
--- NOTE | 2020-10-30 10:02 | PDOC1 ---
INITIAL PAIN CONSULT DATE OF SERVICE: DOS: DATE: 10/30/20 TIME: 09:56 CHIEF COMPLAINT: Chief Complaint: Low back and bilateral lower extremity pain HISTORY OF PRESENT ILLNESS: 75-year-old female presents history of pain low back bilateral lower extremities for 2 to 3 years not the result of any specific injury or accident that she is aware of edema over time gradually as getting much worse over the past year or so patient reports pain is increasing now over the past for 5 months in the low back and bilateral lower extremities with pain rating the posterior gluteus posterior thigh posterior calf posterior lower legs into the feet mostly in the posterior lateral aspect patient reports is throbbing radiating intermittent intensity worse with walking standing changing positions patient reports it wakes her from sleep once or twice a night most nights is not effective bowel bladder control does affect her ability to walk however does not use any assistive devices. Patient has had physical therapy also does yoga and is doing that daily which helps keep things loose but has not decreased the pain significantly patient is also had epidural injections in outside facility in the past which helped significantly as well patient reports she is taking tramadol also Tylenol both of which do decrease the pain by about 20 to 30% patient rates her disability rating 0-10 10 being worst is a 7 with family home responsibilities 6 with recreation 0 social activity 5 with occupation 0 self- care and 0 with life support activities. Patient had MRI scan dated November 2019 showing mild to moderate spinal stenosis including narrowing of the lateral recesses bilaterally L3-4 L4-5 and stenosis bilateral L5-S1 greater on the right location of the descending S1 nerve roots multilevel lumbar neuroforaminal compromise more significant narrowing bilaterally at L5-S1 lesser degree at L4- 5. PAST MEDICAL HISTORY: PMH: Arthritis, bradycardia, sickle cell trait PREVIOUS SURGERIES: Past Surgical Hx: Pacemaker placement 2020, hernia repair, fractured toe ORIF CURRENT MEDICATIONS: Current Meds: Active Scripts Medications Dose Route/Sig Max Daily Dose Days Date Category Glucosamine (Glucosamine Sulfate 2KCL) 1,000 Mg Tablet 1,000 Mg PO 1-2XD 10/30/20 Reported Spironolactone 25 Mg Tablet 1 Tab PO DAILY 10/30/20 Reported Lasix (Furosemide) 20 Mg Tablet 1 Tab PO DAILY 30 10/30/20 Reported Entresto 97 mg-103 mg Tablet (Sacubitril/Valsartan) 1 Each Tablet 1 Each PO BID 10/30/20 Reported Metoprolol Succinate ( Xl ) (Metoprolol Succinate) 25 Mg Tab.er.24h 1 Tab PO BID 10/30/20 Reported Dok (Docusate Sodium) 100 Mg Capsule 100 Mg PO PRN BID PRN 14 03/17/19 Rx Tylenol (Acetaminophen) 325 Mg Tablet 650 Mg PO PRN Q4HRS PRN 30 03/17/19 Rx Aspirin Ec (Aspirin) 81 Mg Tablet.dr 81 Mg PO DAILYWBKFT 30 03/17/19 Rx Glucosamine (Glucosamine Sulfate 2KCL) 1,000 Mg Tablet 0 PO 04/18/17 Reported Requip (Ropinirole Hcl) 1 Mg Tablet 2 Tab PO QHS 04/18/17 Reported ALLERGIES; Allergies: Coded Allergies: No Known Drug Allergies (Unverified , 04/19/17) FAMILY HISTORY: Family Hx: Heart disease, diabetes, cancers SOCIAL HISTORY: Social Hx: Patient drinks alcohol about 2-3 times a week 1 glass of wine does not smoke says any illegal illicit or recreational drugs is single lives locally in [facility], and is currently retired. REVIEW OF SYSTEMS: ROS: Positive for those items mentioned in history of present illness, all systems are reviewed, otherwise negative ,and are complete full and well-documented on patient's chart. PHYSICAL EXAM: VS: Blood pressure is 140/87 pulse 87 respirations 16 temperature 98.4 F height is 5 feet 8 inches weight 151 pounds PE: PHYSICAL EXAMINATION: GENERAL: The patient is awake, alert, oriented, appropriate, very pleasant in demeanor HEENT: Shows normocephalic, atraumatic. Extraocular movements are intact and s ymmetrical. Oral cavity: Mucous membranes moist and pink. NECK: Shows anterior throat supple without palpable lymphadenopathy noted. Swallow reflex symmetrical. CHEST: Shows normal on inspection. Breath sounds are clear bilaterally, distant but no rales rhonchi or wheezes auscultated. HEART: Shows S1, S2 clear. No murmurs auscultated. ABDOMEN: Soft, nontender, nondistended. No palpable organomegaly is noted. No rebound or guarding demonstrated. BACK: Shows spine grossly in the midline. Normal-appearing cervical lordotic curvature. There is slightly increased thoracic kyphosis, some minor flattening of the lumbar lordotic curvature. Lumbar paraspinous muscles show symmetrical on inspection, on palpation shows some moderate tenderness diffusely throughout the upper, middle and lower distribution of the paraspinous muscles bilaterally and also into the lower thoracic paraspinous musculature, firm and tender, but without specific trigger points, without radiation of pain. The patient has good rotational motion of the lumbar spine, both laterally as well as extension and flexion without significant difficulty. No tenderness over the spinous processes, sacrum or sacroiliac regions. EXTREMITIES: Lower extremities show deep tendon reflexes 1+ in the patellar and tendo calcaneus tendons. Motor exam is 4 on a scale of 5 with right dorsiflexion, extension, quadriceps and hamstring flexion and 4/5 on the left. Peripheral pulses are 1+ posterior tibial. No peripheral edema is noted bilaterally. Lower extremities are warm and dry to touch, equal in color and appearance. Straight leg raise noted to be positive bilaterally at approxim ately 40 degrees decreased with knee flexion bilaterally. Gaenslen's and Ángel's maneuvers are negative bilaterally. The patient is able to stand, stand on her toes without significant difficulty or loss of balance, walks with a slight favoring gait does appear to favor the right lower extremity slightly more than the left does not use any assistive devices to ambulate. SKIN: Shows warm and dry, good turgor. No edema. No sores, rashes or bruising throughout. IMPRESSION: Impression: 75-year-old female with 2 to 3-year history increasing pain low back bilateral lower extremities and radicular fashion following L5-S1 dermatomal distribution. MRI scan lumbar spine as noted Arthritis Bradycardia with pacemaker placement Sickle cell trait Plan: Options were discussed the patient including conservative management physical therapies and interventional techniques. As patient is doing physical therapy and doing yoga stretching strength exercises currently is taking anti-inflammatories as well as tramadol without significant reduction in pain, she would like to pursue interventional techniques. We discussed a lumbar epidural steroid injection using description as well as anatomical models as she is done well with these at outside facility in the past. We wait for patient's preauthorization with her insurance in the meantime she will continue with stretching strength exercises continue with yoga and continue with oral analgesics as currently. Once approved, we will plan on translaminar approach L5-S1 level lumbar epidural steroid injection fluoroscopic guidance at that time. YAQUELIN ROWE MD Oct 30, 2020 10:02
== END ==
LOC: PNCL 09:19
PROVIDERS: ATTEND Anesthesiology
DX: M79.661 Pain in right lower leg (principal); M79.662 Pain in left lower leg; M54.5 Low back pain; M19.90 Unspecified osteoarthritis, unspecified site; Z79.899 Other long term (current) drug therapy; Z95.1 Presence of aortocoronary bypass graft; Z98.890 Other specified postprocedural states
CPT/HCPCS: 99205; G0463

== ENCOUNTER → 2020-11-20 | Outpatient (CLI) | payer MEDICARE ==
[~2020-11-20] MED LIST changes: +IOHEXOL 180 MG/ML 10 ML VIAL. ONE; +methylPREDNISolone ACETATE 80 MG/ML VIAL. ONE
--- NOTE | 2020-11-20 10:46 | PDOC ---
Progress Note - Pain Clinic Date of Service: DOS: DATE: 11/20/20 TIME: 10:43 Diagnosis: Dx: Lumbar radiculopathy with lumbar degenerative disease lumbar spinal stenosis History or Present Illness: HPI: 75-year-old female returns for follow-up status post evaluation and complains of low back pain bilateral lower extremities for about the past 2 to 3 years without any injury or accident patient reports is getting worse with walking standing changing positions better with sitting or laying down but wakes her from sleep about a 6 to 7 hours patient reports radiating posterior gluteus posterior thigh posterior calf more on the right than the left at times present bilaterally patient rates is an 8 on scale 10 is worse over the past week 6 on average 6 its least and is a 6 today patient ports sharp and aching dull shooting in the lower extremities. Patient reports no loss of motor function no bowel or bladder incontinence. Physical Exam: VS: Blood pressure 121/70 pulse 79 respirations 18 temperature is 98.5 F weight is 149 pounds PE: PHYSICAL EXAMINATION: GENERAL: The patient is awake, alert, oriented, appropriate, very pleasant in demeanor HEENT: Shows normocephalic, atraumatic. Extraocular movements are intact and symmetrical. Oral cavity: Mucous membranes moist and pink. Dentition is intact. NECK: Shows anterior throat supple without palpable lymphadenopathy noted. Swallow reflex symmetrical. CHEST: Shows normal on inspection. Breath sounds are clear bilaterally, no r ales or rhonchi. HEART: Shows S1, S2 clear. No murmurs auscultated. ABDOMEN: Soft, nontender, nondistended. No palpable organomegaly is noted. BACK: Shows spine grossly in the midline. Normal-appearing cervical lordotic curvature. There is slightly increased thoracic kyphosis, some flattening of the lumbar lordotic curvature. Lumbar paraspinous muscles show symmetrical on inspection, on palpation shows some moderate tenderness diffusely throughout the upper, middle and lower distribution of the paraspinous muscles, but without specific trigger points, without radiation of pain. The patient has good rotational motion of the lumbar spine, both laterally as well as extension and flexion without significant difficulty. EXTREMITIES: Lower extremities show deep tendon reflexes 1+ in the patellar and tendo calcaneus tendons. Motor exam is 4 on a scale of 5 with right dorsiflexion, extension, quadriceps and hamstring flexion and 4/5 on the left. Peripheral pulses are 1+ posterior tibial. No peripheral edema is noted bilaterally. Lower extremities are warm and dry to touch, equal in color and appearance. SKIN: Shows warm and dry, good turgor. No edema. No sores, rashes or bruising throughout. Procedure: Procedure: Options were discussed with the patient. Patient's old chart was reviewed as her current medication regimen updated current review of systems updated today as well. We will proceed with a lumbar epidural steroid injection today with fluoroscopic guidance. Risks were discussed including but not limited to: Bleeding, infection, possibility of epidural hematoma and subsequent neurologi carmela compromise, dural puncture, headaches, spinal cord and/or nerve damage, side effects of steroid medication, and poor results regarding pain control. Patient understands and wished to proceed. Patient will return to the clinic in approximate 2 weeks for follow-up, was counseled as return appointment, activity level, and side effects to be aware of. Medication Injected: Med Injected: Procedure is lumbar epidural steroid injection under local anesthetic using sterile prep and drape at the L5-S1 level using C-arm fluoroscopic guidance in both AP and lateral views medications injected is 120 mg Depo-Medrol +10mL preservative-free normal saline and 2 mL contrast- condition at discharge is stable patient tolerated procedure well had no complications. Condition at Discharge: Condition at Discharge: Condition at discharge stable, patient tolerated procedure well and had no complications. YAQUELIN ROWE MD Nov 20, 2020 10:46
--- NOTE | 2020-11-20 10:46 | PDOC4 ---
Procedure Note: ICD 10 Code: ICD 10 Code: M54.17 M 48.07 M51.87 Procedure Note: Patient was consented for lumbar epidural steroid injection with fluoroscopic guidance risks were discussed including but not limited to: Bleeding, infection, possibility of epidural hematoma and subsequent neurological compromise, dural puncture, headaches, spinal cord and/or nerve damage, side effects of steroid medication, and poor results regarding pain control. Patient understands and wished to proceed. Procedure is lumbar epidural steroid injection under local anesthetic using sterile prep and drape at the L5-S1 level using C-arm fluoroscopic guidance in both AP and lateral views medications injected is 120 mg Depo-Medrol +10mL preservative-free normal saline and 2 mL contrast- condition at discharge is stable patient tolerated procedure well had no complications. YAQUELIN ROWE MD Nov 20, 2020 10:46
== END | disposition home or self-care (01) ==
LOC: PNCL 09:43
PROVIDERS: ATTEND Anesthesiology
DX: M51.16 Intervertebral disc disorders with radiculopathy, lumbar region (principal); M48.061 Spinal stenosis, lumbar region without neurogenic claudication; K21.9 Gastro-esophageal reflux disease without esophagitis; M19.90 Unspecified osteoarthritis, unspecified site; Z87.891 Personal history of nicotine dependence; Z72.89 Other problems related to lifestyle; Z79.899 Other long term (current) drug therapy; Z98.890 Other specified postprocedural states
CPT/HCPCS: 62323; J1040; Q9965

== ENCOUNTER → 2020-12-04 | Outpatient (CLI) | payer MEDICARE ==
[~2020-12-04] MED LIST changes: -IOHEXOL 180 MG/ML 10 ML VIAL. ONE; -methylPREDNISolone ACETATE 80 MG/ML VIAL. ONE
--- NOTE | 2020-12-04 14:36 | PDOC ---
Progress Note - Pain Clinic Date of Service: DOS: DATE: 12/04/20 TIME: 14:32 Diagnosis: Dx: Lumbar radiculopathy with lumbar degenerative disease lumbar spinal stenosis History or Present Illness: HPI: 75-year-old female returns for follow-up status post lumbar epidural steroid traction x1. Patient reports about 65% improvement overall initially now the pain is beginning to return and still about 50% improved patient reports still some pain low back and into the right more than left lower extremity at this time patient reports no new injury or accident reports the pain is much improved she was increase her distance walking doing household activities travel with greater ease and comfort sleeping better at night patient reports the pain does not awaken her from sleep patient rates her pain as a 6 on scale 10 is worse over the past week for an average 0 its least is a 4 today. Patient reports is much better with sitting or laying down but when standing sitting or changing from sitting to a standing position the pain is noticeable patient ports aching in the low back radiating shooting into the right lower extremity greater than the left in the posterior gluteus posterior thigh posterior calf with some cramping quality as well which is new since her last visit. Patient reports no bowel or bladder incontinence, and no deficits. Patient reports she continues to do stretching and strength exercises on her own as well which she feels are helpful and oral analgesics in the form of Tylenol. Physical Exam: VS: Blood pressure is 118/83 pulse 61 respirations 18 temperature 97.7 F weight is 149 pounds PE: PHYSICAL EXAMINATION: GENERAL: The patient is awake, alert, oriented, appropriate, very pleasant in demeanor HEENT: Shows normocephalic, atraumatic. Extraocular movements are intact and symmetrical. Oral cavity: Mucous membranes moist and pink. NECK: Shows anterior throat supple without palpable lymphadenopathy noted. Swallow reflex symmetrical. CHEST: Shows normal on inspection. Breath sounds are clear bilaterally, no rales rhonchi or wheeze. HEART: Shows S1, S2 clear. No murmurs auscultated. ABDOMEN: Soft, nontender, nondistended, obese. No palpable organomegaly is noted. BACK: Shows spine grossly in the midline. Normal-appearing cervical lordotic curvature. There is increased thoracic kyphosis, some flattening of the lumbar lordotic curvature. Lumbar paraspinous muscles show symmetrical on inspection, on palpation shows some moderate tenderness diffusely throughout the upper, middle and lower distribution of the paraspinous muscles, but without specific trigger points, without radiation of pain. The patient has good rotational motion of the lumbar spine, both laterally as well as extension and flexion without significant difficulty. EXTREMITIES: Lower extremities show deep tendon reflexes 1 to in the patellar and tendo calcaneus tendons. Motor exam is 4 on a scale of 5 with right dorsiflexion, extension, quadriceps and hamstring flexion and 4/5 on the left. Peripheral pulses are 1+ posterior tibial. No peripheral edema is noted bilaterally. Lower extremities are warm and dry to touch, equal in color and appearance. SKIN: Shows warm and dry, good turgor. No edema. No sores, rashes or bruising throughout. Procedure: Procedure: Options were discussed with patient. Patient chart reviews her current medication regimen updated current view of systems updated today as well. We will preauthorize patient for a lumbar epidural steroid injection as he did very well with the first injection still with radicular pain traveling the L5-S1 dermatomal distribution in the right greater than left lower extremity. Once approved, patient return I will plan on translaminar approach L5-S1 level lumbar epidural steroid injection with fluoroscopic guidance. Patient will continue with stretching strength exercises in the meantime as well as oral analgesics as currently. Medication Injected: Med Injected: None Condition at Discharge: Condition at Discharge: Condition at discharge is stable. YAQUELIN ROWE MD Dec 04, 2020 14:36
== END ==
LOC: PNCL 13:57
PROVIDERS: ATTEND Anesthesiology
DX: M51.16 Intervertebral disc disorders with radiculopathy, lumbar region (principal); M48.061 Spinal stenosis, lumbar region without neurogenic claudication; K21.9 Gastro-esophageal reflux disease without esophagitis; M19.90 Unspecified osteoarthritis, unspecified site; F17.210 Nicotine dependence, cigarettes, uncomplicated; Z98.890 Other specified postprocedural states
CPT/HCPCS: 99212; G0463

== ENCOUNTER → 2021-01-23 | Outpatient (CLI) | payer MEDICARE ==
[~2021-01-23] MED LIST changes: -LISI-517 PO; +LISI5TAB15 PO
--- NOTE | 2021-01-23 11:58 | KCIC ---
CT of the chest without contrast 01/23/2021 INDICATION: Follow-up lung nodule COMPARISON STUDY: CT chest August 24, 2020., CTA chest March 2019 TECHNIQUE: Multidetector CT imaging of the chest without contrast FINDINGS: There is a multilead pacemaking/ICD device from a left subclavian approach. Heart size is n ormal. No pericardial effusion is identified. No overt mediastinal adenopathy is identified on limite d noncontrast enhanced views. Limited visualization of the upper abdomen demonstrates no acute abnormality. The liver is mildly hyp erdense with respect to the spleen. Finding is nonspecific but can be seen with conditions such is he machromatosis, or long-term amiodarone therapy. Reverse S scoliosis of the thoracolumbar lumbar spine noted. Associated degenerative changes noted. N o acute osseous abnormality is seen. 5 mm noncalcified nodule, right middle lobe is stable. IMPRESSION: 1. 5 mm nodule, right middle lobe, stable since March 2019 2. Mild increased density throughout the liver. The appearance is somewhat nonspecific but can be see n with conditions such as hemachromatosis or long-term amiodarone therapy CT DOSING PQRS STATEMENT: One or more of the following individualized dose reduction techniques were utilized for this examinat ion: 1. Automated exposure control 2. Adjustment of the mA and/or kV according to patient size 3. Use of iterative reconstruction technique Electronically signed by: Porter Zamorano MD (01/23/2021 11:55 AM) [id number]
== END ==
LOC: KCIC CT 10:47
PROVIDERS: ATTEND Internal Medicine Pulmonary Disease
DX: R91.1 Solitary pulmonary nodule (principal); M41.85 Other forms of scoliosis, thoracolumbar region
CPT/HCPCS: 71250

== ENCOUNTER → 2021-03-16 | Outpatient (CLI) | payer MEDICARE ==
--- NOTE | 2021-03-16 13:00 | PDOC ---
Progress Note - Pain Clinic Date of Service: DOS: DATE: 03/16/21 TIME: 12:56 Diagnosis: Dx: Lumbar radiculopathy with lumbar degenerative disease and lumbar spinal stenosis History or Present Illness: HPI: 76-year-old female returns for follow-up status post lumbar epidural steroid injection in November 2020 patient did very well with about a 65 to 70% improvement in the pain in the low back and right greater than left lower extremity patient reports pain is returning now in the low back rating to right lower extremity posterior gluteus posterior thigh posterior calf to the ankle worse with walking standing changing positions better with sitting or laying down. Patient reports it occasionally awakens her from sleep at night most nights. Patient reports no loss of motor function but significant fatigability the right leg with walking and standing patient describes the pain as a 7 on scale 10 is worst over the past week for an average 0 its least is a 4 today patient reports is aching tight and shooting in the right leg as well as cramping and stabbing at times the low back. Patient reports no bowel or bladder incontinence. 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 Physical Exam: VS: Blood pressure is 113/77 pulse 67 respirations 18 temperature is 98.4 F height is 5 feet 8 inches weight is 156 pounds. PE: PHYSICAL EXAMINATION: GENERAL: The patient is awake, alert, oriented, appropriate, very pleasant in demeanor HEENT: Shows normocephalic, atraumatic. Extraocular movements are intact and symmetrical. Oral cavity: Mucous membranes moist and pink. NECK: Shows anterior throat supple without palpable lymphadenopathy noted. Swallow reflex symmetrical. CHEST: Shows normal on inspection. Breath sounds are clear bilaterally. HEART: Shows S1, S2 clear. No murmurs auscultated. ABDOMEN: Soft, nontender, nondistended. No palpable organomegaly is noted. BACK: Shows spine grossly in the midline. Normal-appearing cervical lordotic curvature. There is slightly increased thoracic kyphosis, some flattening of the lumbar lordotic curvature. Lumbar paraspinous muscles show symmetrical on inspection, on palpation shows some moderate tenderness diffusely throughout the upper, middle and lower distribution of the paraspinous muscles without specific trigger points, without radiation of pain. The patient has good rotational motion of the lumbar spine, both laterally as well as extension and flexion without significant difficulty. No tenderness over the spinous processes, sacrum or sacroiliac regions. EXTREMITIES: Lower extremities show deep tendon reflexes 1+ in the patellar and tendo calcaneus tendons. Motor exam is 4 on a scale of 5 with right dorsiflexion, extension, quadriceps and hamstring flexion and 4/5 on the left. Peripheral pulses are 1+ posterior tibial. No peripheral edema is noted bilaterally. Lower extremities are warm and dry to touch, equal in color and appearance. SKIN: Shows warm and dry, good turgor. No edema. No sores, rashes or bruising throughout. Procedure: Procedure: Options were discussed with patient. Patient's old chart was reviewed as her current medication regimen updated current review of systems updated today as well. Patient reports that she has worked later this afternoon and would like to reschedule for her procedure on a day when she is not working as she will be able to get off her feet and relax a bit after the injection. Patient will reschedule in approximately 1 week. Medication Injected: Med Injected: None Condition at Discharge: Condition at Discharge: Condition at discharge is stable. YAQUELIN ROWE MD Mar 16, 2021 13:00
== END | disposition home or self-care (01) ==
LOC: PNCL 11:32
PROVIDERS: ATTEND Anesthesiology
DX: M51.16 Intervertebral disc disorders with radiculopathy, lumbar region (principal); M48.061 Spinal stenosis, lumbar region without neurogenic claudication; K21.9 Gastro-esophageal reflux disease without esophagitis; M19.90 Unspecified osteoarthritis, unspecified site; Z79.82 Long term (current) use of aspirin; Z87.891 Personal history of nicotine dependence; Z79.899 Other long term (current) drug therapy; Z98.890 Other specified postprocedural states; Z72.89 Other problems related to lifestyle
CPT/HCPCS: 99212; G0463

== ENCOUNTER → 2021-03-17 | Outpatient (CLI) | payer MEDICARE ==
[~2021-03-17] MED LIST changes: +IOHEXOL 180 MG/ML 10 ML VIAL. ONE; +methylPREDNISolone ACETATE 40 MG/ML VIAL. ONE; +methylPREDNISolone ACETATE 80 MG/ML VIAL. ONE
--- NOTE | 2021-03-17 11:55 | PDOC ---
Progress Note - Pain Clinic Date of Service: DOS: DATE: 03/17/21 TIME: 11:52 Diagnosis: Dx: Lumbar radiculopathy with lumbar degenerative disease lumbar spinal stenosis History or Present Illness: HPI: 76-year-old female returns for follow-up complaining pain low back right lower extremity posterior gluteus posterior thigh posterior lateral thigh posterior calf into the ankle and foot patient reports she is 70% improved after injection in November pain returning now in the low back and right leg as it was previously patient reports no loss of motor function no bowel or bladder incontinence but significant pain and fatigability with the right lower extremity with standing walking changing positions better with laying down generally does not awaken her from sleep most nights. Patient describes pain as aching and tight can be stabbing and dull shooting in the right lower extremity. Patient rates as an 8 on scale 10 is worst 6 on average 3 at its least and is a 5 today. Patient reports no new deficits again no bowel or bladder incontinence at this time. Physical Exam: VS: Blood pressure is 121/70 pulse 67 respirations are 16 temperature 97.9 F height is 5 feet 8 inches weight is 154 pounds PE: PHYSICAL EXAMINATION: GENERAL: The patient is awake, alert, oriented, appropriate, very pleasant in demeanor HEENT: Shows normocephalic, atraumatic. Extraocular movements are intact and symmetrical. Oral cavity: Mucous membranes moist and pink. NECK: Shows anterior throat supple without palpable lymphadenopathy noted. Swallow reflex symmetrical. CHEST: Shows normal on inspection. Breath sounds are clear bilaterally. HEART: Shows S1, S2 clear. No murmurs auscultated. ABDOMEN: Soft, nontender, nondistended. No palpable organomegaly is noted. No rebound or guarding demonstrated. BACK: Shows spine grossly in the midline. Normal-appearing cervical lordotic curvature. There is increased thoracic kyphosis, some flattening of the lumbar lordotic curvature. Lumbar paraspinous muscles show symmetrical on inspection, on palpation shows some moderate tenderness diffusely throughout the upper, middle and lower distribution of the paraspinous muscles without specific trigger points, without radiation of pain. The patient has good rotational motion of the lumbar spine, both laterally as well as extension and flexion without significant difficulty. EXTREMITIES: Lower extremities show deep tendon reflexes 1+ in the patellar and tendo calcaneus tendons. Motor exam is 4 on a scale of 5 with right dorsiflexion, extension, quadriceps and hamstring flexion and 4/5 on the left. Peripheral pulses are 1+ posterior tibial. No peripheral edema is noted bilaterally. Lower extremities are warm and dry. SKIN: Shows warm and dry, good turgor. No edema. No sores, rashes or bruising throughout. Procedure: Procedure: Options were discussed with the patient. Patient's old chart was reviewed as her current medication regimen updated current review of systems updated today as well. We will proceed with a lumbar epidural steroid injection today with fluoroscopic guidance. Risks were discussed including but not limited to: Bleeding, infection, possibility of epidural hematoma and subsequent neurological compromise, dural puncture, headaches, spinal cord and/or nerve damage, side effects of steroid medication, and poor results regarding pain control. Patient understands and wished to proceed. Patient will return to the clinic in approximately 2 weeks for follow-up, was counseled as to return appointment, activity level, and side effects to be aware of. Medication Injected: Med Injected: Procedure is lumbar epidural steroid injection under local anesthetic using sterile prep and drape at the L5-S1 level using C-arm fluoroscopic guidance in both AP and lateral views medications injected is 120 mg Depo-Medrol +10mL pre servative-free normal saline and 2 mL contrast- condition at discharge is stable patient tolerated procedure well had no complications. Condition at Discharge: Condition at Discharge: Condition at discharge stable, patient tolerated the procedure well and had no complications. YAQUELIN ROWE MD Mar 17, 2021 11:55
--- NOTE | 2021-03-17 11:56 | PDOC4 ---
Procedure Note: ICD 10 Code: ICD 10 Code: M54.17 M51.87 M48.07 Procedure Note: Patient was consented for lumbar epidural steroid injection with fluoroscopic guidance. Risks were discussed including but not limited to: Bleeding, infection, possibility of epidural hematoma and subsequent neurological compromise, dural puncture, headaches, spinal cord and/or nerve damage, side effects of steroid medication, and poor results regarding pain control. Patient understands and wished to proceed. Procedure is lumbar epidural steroid injection under local anesthetic using ster ile prep and drape at the L5-S1 level using C-arm fluoroscopic guidance in both AP and lateral views medications injected is 120 mg Depo-Medrol +10mL preservative-free normal saline and 2 mL contrast- condition at discharge is stable patient tolerated procedure well had no complications. YAQUELIN ROWE MD Mar 17, 2021 11:56
== END | disposition home or self-care (01) ==
LOC: PNCL 10:25
PROVIDERS: ATTEND Anesthesiology
DX: M51.16 Intervertebral disc disorders with radiculopathy, lumbar region (principal); M48.061 Spinal stenosis, lumbar region without neurogenic claudication; K21.9 Gastro-esophageal reflux disease without esophagitis; M19.90 Unspecified osteoarthritis, unspecified site; Z87.891 Personal history of nicotine dependence; Z79.82 Long term (current) use of aspirin; Z79.899 Other long term (current) drug therapy; Z98.890 Other specified postprocedural states; Z72.89 Other problems related to lifestyle
CPT/HCPCS: 62323; J1030; J1040; Q9965

== ENCOUNTER → 2021-03-31 | Outpatient (CLI) | payer MEDICARE ==
[~2021-03-31] MED LIST changes: -IOHEXOL 180 MG/ML 10 ML VIAL. ONE; -methylPREDNISolone ACETATE 40 MG/ML VIAL. ONE; -methylPREDNISolone ACETATE 80 MG/ML VIAL. ONE
--- NOTE | 2021-03-31 11:17 | PDOC ---
Progress Note - Pain Clinic Date of Service: DOS: DATE: 03/31/21 TIME: 11:13 Diagnosis: Dx: Lumbar radiculopathy with lumbar degenerative disc disease and lumbar spinal stenosis History or Present Illness: HPI: 76-year-old female returns status post lumbar epidural steroid injection x1. Patient reports about 70% improvement in the low back and right lower extremity since the injection 2 weeks ago. 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 Patient reports no bowel or bladder incontinence no motor or sensory deficits occasional fatigue in the right leg when standing for prolonged periods much more tolerable than previously. Physical Exam: VS: Blood pressure is 98/71 pulse 80 respirations 18 temperature 90.1 F height 5 feet 8 inches weight is 155 pounds. PE: PHYSICAL EXAMINATION: GENERAL: The patient is awake, alert, oriented, appropriate, very pleasant in demeanor HEENT: Shows normocephalic, atraumatic. Extraocular movements are intact and symmetrical. Patient wearing eyeglasses. Oral cavity: Mucous membranes moist and pink. NECK: Shows anterior throat supple without palpable lymphadenopathy noted. Swallow reflex symmetrical. CHEST: Shows normal on inspection. Breath sounds are clear bilaterally, distant but no rales or rhonchi. HEART: Shows S1, S2 clear. No murmurs auscultated. ABDOMEN: Soft, nontender, nondistended. No palpable organomegaly is noted. BACK: Shows spine grossly in the midline. Normal-appearing cervical lordotic curvature. There is mildly increased thoracic kyphosis, some flattening of the lumbar lordotic curvature. Lumbar paraspinous muscles show symmetrical on inspection, on palpation shows some moderate tenderness diffusely throughout the upper, middle and lower distribution of the paraspinous muscles without specific trigger points, without radiation of pain. The patient has good rotational motion of the lumbar spine, both laterally as well as extension and flexion without significant difficulty. EXTREMITIES: Lower extremities show deep tendon reflexes 1+ in the patellar and tendo calcaneus tendons. Motor exam is 4 on a scale of 5 with right dorsiflexion, extension, quadriceps and hamstring flexion and 4/5 on the left. Peripheral pulses are 1+ posterior tibial. No peripheral edema is noted bilaterally. Lower extremities are warm and dry. SKIN: Shows warm and dry, good turgor. No edema. No sores, rashes or bruising throughout. Procedure: Procedure: Options discussed with patient. Patient chart was reviewed as her current medication regimen updated current review of systems updated today as well. We will preauthorize patient for second lumbar epidural steroid injection as she has persistence L5-S1 dermatomal distribution radiculopathy in the right lower extremity although significantly improved for the first 2 weeks following first injection. Patient will continue with stretching strengthening exercises as well as oral analgesics as necessary. Once approved we will have patient return for translaminar approach L5-S1 lumbar epidural steroid injection with fluoroscopic guidance. Medication Injected: Med Injected: None Condition at Discharge: Condition at Discharge: Condition at discharge is stable. YAQUELIN ROWE MD Mar 31, 2021 11:17
== END | disposition home or self-care (01) ==
LOC: PNCL 10:56
PROVIDERS: ATTEND Anesthesiology
DX: M51.16 Intervertebral disc disorders with radiculopathy, lumbar region (principal); M48.061 Spinal stenosis, lumbar region without neurogenic claudication; K21.9 Gastro-esophageal reflux disease without esophagitis; M19.90 Unspecified osteoarthritis, unspecified site; Z79.82 Long term (current) use of aspirin; Z79.899 Other long term (current) drug therapy; Z98.890 Other specified postprocedural states; Z72.89 Other problems related to lifestyle
CPT/HCPCS: 99212; G0463

== ENCOUNTER → 2021-07-09 | Outpatient (CLI) | payer MEDICARE ==
--- NOTE | 2021-07-09 17:29 | CARD ---
MR#: [id number] Date of Study: 07/09/2021 Ordering Physician: AIXA BUTLER, Referring Physician: AIXA BUTLER, Tech: Geovanni Wilson [facility] APPROVED REPORT EXAM: Two-dimensional and M-mode echocardiogram with Doppler and color Doppler. Other Information Quality : GoodHR: 62bpm Rhythm : NSR INDICATION Cardiomyopathy Surgery/Intervention ICD/Pacemaker: RISK FACTORS Family History Smoking 2D DIMENSIONS Left Atrium(2D)3.4 (1.6-4.0cm)IVSd0.9 (0.7-1.1cm) Aortic Root(2D)3.3 (2.0-3.7cm)LVDd4.1 (3.9-5.9cm) LVOT Diameter1.8 (1.8-2.4cm)PWd0.8 (0.7-1.1cm) LA Hwodvm04 (18-58mL)LVDs3.2 (2.5-4.0cm) FS (%) 21.9 %SV33.1 ml Aortic Valve AoV Peak Johnny.121.6cm/sAoV VTI23.7cm AO Peak GR.5.9mmHgLVOT Peak Johnny.85.6cm/s LVOT VTI 15.84cmAO Mean GR.4mmHg NILAM (VMAX)1.54ip3UAK (VTI)1.78cm2 Mitral Valve MV E Qgxnyrne76.6cm/sMV DECEL PADM277mf MV A Owbhhojw86.0cm/sMV MMQ041ep E/A Ratio0.6MVA (PHT)2.09cm2 TDI E/Lateral E'5.7E/Medial E'5.5 Pulmonary Valve PV Peak Psjfgily176.4cm/sPV Peak Grad.4mmHg Tricuspid Valve TR P. Pyskfyzn566ci/sTR Peak Gr.21mmHg Pulmonary Vein S1 Ienjungh45.0cm/sD2 Rdkkychr88.6cm/s LEFT VENTRICLE The Left Ventricle is borderline dilated. There is normal left ventricular wall thickness. The left v entricular systolic function is mildly decreased. The Ejection Fraction is estimated at 45%. There is mild global hypokinesis of the left ventricle. Transmitral Doppler flow pattern is Grade I-abnormal relaxation pattern. No left ventricle thrombus noted on this study. There is no ventricular septal de fect visualized. There is no left ventricular aneurysm. There is no mass noted in the left ventricle. RIGHT VENTRICLE The right ventricle is normal size. There is normal right ventricular wall thickness. The right ventr icular systolic function is normal. ATRIA The left atrium is mildly dilated. The right atrium size is normal. The interatrial septum is intact with no evidence for an atrial septal defect or patent foramen ovale as noted on 2-D or Doppler imagi ng. AORTIC VALVE The aortic valve is normal in structure and function. Doppler and Color Flow revealed no significant aortic regurgitation. There is no significant aortic valvular stenosis. There is no aortic valvular v egetation. MITRAL VALVE The mitral valve is thickened but opens well. There is no evidence of mitral valve prolapse. There is no mitral valve stenosis. Doppler and Color-flow revealed mild mitral regurgitation. TRICUSPID VALVE The tricuspid valve is normal in structure and function. Doppler and Color Flow revealed trace to mil d tricuspid regurgitation. There is no tricuspid valve prolapse or vegetation. There is no tricuspid valve stenosis. PULMONIC VALVE The pulmonary valve is normal in structure and function. Doppler and Color Flow revealed no pulmonic valvular regurgitation. There is no pulmonic valvular stenosis. GREAT VESSELS The aortic root is normal in size. The ascending aorta is normal in size. The pulmonary artery is nor mal. The IVC is normal in size and collapses >50% with inspiration. PERICARDIAL EFFUSION There is no pleural effusion. There is no evidence of significant pericardial effusion. Critical Notification Critical Value: No <Conclusion> The Left Ventricle is borderline dilated. The left ventricular systolic function is mildly decreased. The Ejection Fraction is estimated at 45%. There is mild global hypokinesis of the left ventricle. Doppler and Color Flow revealed no significant aortic regurgitation. There is no significant aortic valvular stenosis. Doppler and Color-flow revealed mild mitral regurgitation. Doppler and Color Flow revealed trace to mild tricuspid regurgitation. There is a device lead in the right ventricle. Signed by : Johann Kuo MD Electronically Approved : 07/09/2021 17:28:24
== END ==
LOC: ECHO 14:44
PROVIDERS: ATTEND Internal Medicine Cardiovascular Disease
DX: I08.1 Rheumatic disorders of both mitral and tricuspid valves (principal); I42.9 Cardiomyopathy, unspecified
CPT/HCPCS: 93306; C8929

== ENCOUNTER → 2021-07-21 | Outpatient (CLI) | payer MEDICARE ==
[~2021-07-21] MED LIST changes: +DEXAMETHASONE PRES.FREE 10 MG/ML VIAL. ONE; +IOHEXOL 180 MG/ML 10 ML VIAL. ONE
--- NOTE | 2021-07-21 08:35 | PDOC4 ---
Procedure Note: ICD 10 Code: ICD 10 Code: M54.17 M51.87 M48.07 Procedure Note: Patient was consented for lumbar epidural steroid injection with fluoroscopic guidance. Risks were discussed including but not limited to: Bleeding, infection, possibility of epidural hematoma and subsequent neurological compromise, dural puncture, headaches, spinal cord and/or nerve damage, side effects of steroid medication, and poor results regarding pain control. Patient understands and wished to proceed. Procedure is lumbar epidural steroid injection under local anesthetic using ster ile prep and drape at the L5-S1 level using C-arm fluoroscopic guidance in both AP and lateral views medications injected is 20 mg dexamethasone +10mL preservative-free normal saline and 2 mL contrast- condition at discharge is stable patient tolerated procedure well had no complications. YAQUELIN ROWE MD July 21, 2021 08:35
--- NOTE | 2021-07-21 08:35 | PDOC ---
Progress Note - Pain Clinic Date of Service: DOS: DATE: 07/21/21 TIME: 08:31 Diagnosis: Dx: Lumbar radiculopathy with lumbar degenerative disease and lumbar spinal stenosis History or Present Illness: HPI: 76-year-old female returns for follow-up status post lumbar epidural steroid injection last seen March 31, 2021 patient did very well with about 80% improvement with pain in the low back and right lower extremity patient reports that she been increasing her activity greater ease and comfort traveling greater distances doing household activities walking greater distances as well and sleeping better at night patient reports pain began to return but now is in the left lower extremity to the level of the foot in the posterior gluteus posterior lateral thigh posterior calf on the left side greater than the right although the right side is painful in the back left leg is now more painful when she step s down on her left foot patient reports becoming much more noticeable worse with walking and standing getting up from a seated position better with sitting or laying down generally does not awaken her from sleep at night patient reports her pain is 8 on scale 10 is worse over the past week 8 on average 6 at its least and is an 8 today. Patient reports no bowel or bladder incontinence no loss of motor function with significant fatigability of the left lower extremity now as opposed to the right as she had previously. Patient continues doing stretching exercises daily and feels this does help to a moderate extent to decrease the pain as well. Patient reports no bowel or bladder incontinence. Physical Exam: VS: Blood pressure is 126/86 pulse 73 respirations 18 temperature 97.3 F height 5 feet 8 inches weight is 151 pounds. PE: PHYSICAL EXAMINATION: GENERAL: The patient is awake, alert, oriented, appropriate, very pleasant in demeanor HEENT: Shows normocephalic, atraumatic. Extraocular movements are intact and symmetrical. Oral cavity: Mucous membranes moist and pink. NECK: Shows anterior throat supple without palpable lymphadenopathy noted. Swallow reflex symmetrical. CHEST: Shows normal on inspection. Breath sounds are clear bilaterally, no rales rhonchi or wheezes auscultated. HEART: Shows S1, S2 clear. No murmurs auscultated. ABDOMEN: Soft, nontender, nondistended. No palpable organomegaly is noted. BACK: Shows spine grossly in the midline. Normal-appearing cervical lordotic curvature. There is mildly increased thoracic kyphosis, some flattening of the lumbar lordotic curvature. Lumbar paraspinous muscles show symmetrical on inspection, on palpation shows some moderate tenderness diffusely throughout the upper, middle and lower distribution of the paraspinous muscles, without specific trigger points, without radiation of pain. The patient has good rotational motion of the lumbar spine, both laterally as well as extension and flexion without significant difficulty. EXTREMITIES: Lower extremities show deep tendon reflexes 1+ in the patellar and tendo calcaneus tendons. Motor exam is 4 on a scale of 5 with right dorsiflexion, extension, quadriceps and hamstring flexion and 4/5 on the left. Peripheral pulses are 1+ posterior tibial. No peripheral edema is noted bilaterally. Lower extremities are warm and dry to touch, equal in color and appearance. SKIN: Shows warm and dry, good turgor. No edema. No sores, rashes or bruising throughout. Procedure: Procedure: Options discussed with the patient. Patient's old chart was reviewed as her current medication regimen updated current review of systems updated today as well. We will proceed with a lumbar epidural steroid injection today with fluoroscopic guidance. Risks were discussed including but not limited to: Bleeding, infection, possibility of epidural hematoma and subsequent neurological compromise, dural puncture, headaches, spinal cord and/or nerve damage, side effects of steroid medication, and poor results regarding pain control. Patient understands and wished to proceed. Patient will return to the clinic in approximately 2 weeks for follow-up, was counseled as to return appointment, activity level, and side effects to be aware of. Medication Injected: Med Injected: Procedure is lumbar epidural steroid injection under local anesthetic using sterile prep and drape at the L5-S1 level using C-arm fluoroscopic guidance in both AP and lateral views medications injected is 20 mg dexamethasone +10mL preservative-free normal saline and 2 mL contrast- condition at discharge is stable patient tolerated procedure well had no complications. Condition at Discharge: Condition at Discharge: Condition at discharge is stable, patient tolerated the procedure well and had no complications. YAQUELIN ROWE MD July 21, 2021 08:35
== END | disposition home or self-care (01) ==
LOC: PNCL 07:48
PROVIDERS: ATTEND Anesthesiology
DX: M51.16 Intervertebral disc disorders with radiculopathy, lumbar region (principal); M48.061 Spinal stenosis, lumbar region without neurogenic claudication; K21.9 Gastro-esophageal reflux disease without esophagitis; M19.90 Unspecified osteoarthritis, unspecified site; Z87.891 Personal history of nicotine dependence; Z79.82 Long term (current) use of aspirin; Z79.899 Other long term (current) drug therapy; Z98.890 Other specified postprocedural states; Z72.89 Other problems related to lifestyle
CPT/HCPCS: 62323; J1100; Q9965